=== PATIENT | female | born 1940 | race Caucasian/White ===

== ENCOUNTER 2023-04-09 11:03 | Inpatient (IN) | payer MEDICARE ==
[~2023-04-09] VITALS: Ht 165.1 cm; Wt 61.8 kg
[~2023-04-09 11:03] MED LIST: ALBU8.5H8 IH; ASPI-1197 PO; CLOP75TA32 PO; MONT-46 PO; RAMI10CA69 PO; ROSU10TA28 PO
[2023-04-09] MEDS ORDERED: ONDANSETRON 4MG INJ IVP ONE (12:00)
[2023-04-09] MEDS ORDERED: MORPHINE 4 MG SYG IVP ONE (12:00)
[2023-04-09] MEDS ORDERED: 0.9%NACL 1000ML 1,000 ML IV ONE (12:00)
[2023-04-09] MEDS ORDERED: ZOSYN 3.375GM +NS 50ML IVPB ONE (12:00)
[2023-04-09 12:41] LABS: BASOPHILS % (AUTO) 0.7 % (0.0-5.0); HEMATOCRIT 42.9 % (36-48); LYMPHOCYTES % (AUTO) 15.9 % (21.0-51.0); MEAN CORPUSCULAR HEMOGLOBIN 29.3 pg (27.0-33.0); MEAN CORPUSCULAR HGB CONC 33.6 g/dL (32.0-36.0); MEAN CORPUSCULAR VOLUME 87.2 fL (79-99); MONOCYTES % (AUTO) 9.1 % (3.0-13.0); NEUTROPHILS % (AUTO) 71.8 % (40.0-77.0); PLATELET COUNT (AUTO) 325 K/uL (130-400); RED BLOOD CELL COUNT(AUTO) 4.92 MIL/uL (4.00-5.50); RED CELL DISTRIBUTION WIDTH 13.2 % (11.0-15.5); WHITE BLOOD COUNT (AUTO) 8.6 K/uL (4.8-10.8)
[2023-04-09 13:02] LABS: POTASSIUM 4.2 mmol/L (3.5-5.1)
[2023-04-09 13:06] LABS: ALBUMIN 3.7 g/dL (3.5-5.0); TOTAL PROTEIN, SERUM 7.6 g/dL (6.0-8.3)
[2023-04-09] MEDS ORDERED: IOHEXOL-350 75 ML VIAL IV ONE (13:15)
[2023-04-09] MEDS ORDERED: METRONIDAZOLE 500 MG TABLET PO STA (15:03)
[2023-04-09] MEDS ORDERED: NEOMYCIN SULFATE 500 MG TAB PO STA (15:03)
[2023-04-09] MEDS ORDERED: PEG 3350/NA SULF,BICARB,CL/KCL 4000 ML SOLN PO ONE (16:00)
[2023-04-09] MEDS ORDERED: METRONIDAZOLE 500 MG TABLET PO SCH ×2 (16:30→22:00)
[2023-04-09] MEDS ORDERED: NEOMYCIN SULFATE 500 MG TAB PO SCH ×3 (16:30→23:00)
[2023-04-09] MEDS ORDERED: POTASSIUM CHLORIDE 20MEQ/100ML 100 ML IV PRN (17:30)
[2023-04-09] MEDS ORDERED: MAG/ALUM/SIMETH 30 ML UDCUP PO PRN (17:30)
[2023-04-09] MEDS ORDERED: DIPHENHYDRAMINE HCL 25 MG CAPSULE PO PRN (17:30)
[2023-04-09] MEDS ORDERED: HYDROCODONE/ACETAMINOPHEN 5/325 MG TAB PO PRN (17:30)
[2023-04-09] MEDS ORDERED: MAGNESIUM 2GM PREMIX 50ML 50 ML IV PRN (17:30)
[2023-04-09] MEDS ORDERED: GUAIFENESIN-DM 200/20 MG 10 ML PO PRN (17:30)
[2023-04-09] MEDS ORDERED: DiphenhydrAMINE HCL 50 MG/ML VIAL IV PRN (17:30)
[2023-04-09] MEDS ORDERED: POTASSIUM CHLORIDE 10% ELIXIR 20 MEQ/15 ML UDCUP PO PRN (17:30)
[2023-04-09] MEDS ORDERED: LACTULOSE 20 GM/30 ML UDCUP PO PRN (17:30)
[2023-04-09] MEDS ORDERED: NITROGLYCERIN 0.4 MG SL TAB SL PRN (17:30)
[2023-04-09] MEDS ORDERED: ACETAMINOPHEN 325 MG TAB PO PRN (17:30)
[2023-04-09] MEDS: ALBUTEROL INHALER 90MCG/INH IH SCH (18:06)
[2023-04-09] MEDS: CLOPIDOGREL 75MG TAB PO SCH (18:07)
[2023-04-09] MEDS: ASPIRIN 81MG CHEW TAB PO SCH (18:07)
[2023-04-09] MEDS: METRONIDAZOLE 500 MG TABLET PO SCH ×2 (20:16→22:56)
[2023-04-09] MEDS: 0.9%NACL 1000ML 1,000 ML IV SCH (20:17)
[2023-04-09] MEDS: FAMOTIDINE 20MG VIAL IV SCH (20:17)
[2023-04-09] MEDS: FAMOTIDINE 20MG TAB PO SCH (20:18)
[2023-04-09] MEDS: ATORVASTATIN 20 MG TABLET PO SCH (20:33)
[2023-04-09] MEDS: MONTELUKAST SODIUM 10 MG TAB PO SCH (20:33)
[2023-04-09] MEDS: NEOMYCIN SULFATE 500 MG TAB PO SCH (22:51)
[2023-04-09 23:30] VITALS: BP 106/65
[2023-04-10] VITALS (23 sets, daily range): BP systolic 109–162; BP diastolic 50–73
[2023-04-10] MEDS: ACETAMINOPHEN 325 MG TAB PO PRN ×2 (02:33→14:10)
[2023-04-10] MEDS: 0.9%NACL 1000ML 1,000 ML IV SCH ×3 (03:16→20:55)
[2023-04-10 05:10] LABS: BASOPHILS % (AUTO) 0.5 % (0.0-5.0); EOSINOPHILS % (AUTO) 0.2 % (0.0-8.0); HEMATOCRIT 40.5 % (36-48); LYMPHOCYTES % (AUTO) 11.6 % (21.0-51.0); MEAN CORPUSCULAR HEMOGLOBIN 29.1 pg (27.0-33.0); MEAN CORPUSCULAR HGB CONC 32.6 g/dL (32.0-36.0); MEAN CORPUSCULAR VOLUME 89.2 fL (79-99); MONOCYTES % (AUTO) 7.6 % (3.0-13.0); NEUTROPHILS % (AUTO) 79.7 % (40.0-77.0); PLATELET COUNT (AUTO) 295 K/uL (130-400); RED BLOOD CELL COUNT(AUTO) 4.54 MIL/uL (4.00-5.50); RED CELL DISTRIBUTION WIDTH 13.4 % (11.0-15.5); WHITE BLOOD COUNT (AUTO) 9.4 K/uL (4.8-10.8)
[2023-04-10 05:40] LABS: ALBUMIN 3.3 g/dL (3.5-5.0); CREATININE 1.1 mg/dL (0.5-1.5); MAGNESIUM 1.9 mg/dL (1.80-2.40); PHOSPHORUS 3.2 mg/dL (2.5-4.9); POTASSIUM 3.9 mmol/L (3.5-5.1); THYROID STIMULATING HORMONE 1.16 uIU/mL (0.36-3.74); TOTAL PROTEIN, SERUM 6.6 g/dL (6.0-8.3)
[2023-04-10] MEDS: LISINOPRIL 40 MG TABLET PO SCH (08:00)
[2023-04-10] MEDS: ASPIRIN 81MG CHEW TAB PO SCH (08:18)
[2023-04-10] MEDS: CLOPIDOGREL 75MG TAB PO SCH (08:18)
[2023-04-10] MEDS: ALBUTEROL INHALER 90MCG/INH IH SCH (08:18)
[2023-04-10] MEDS: FAMOTIDINE 20MG TAB PO SCH ×2 (08:18→18:37)
[2023-04-10] MEDS: FAMOTIDINE 20MG VIAL IV SCH ×2 (08:19→22:26)
[2023-04-10] MEDS: ENOXAPARIN SODIUM 30 MG/0.3 ML SQ SCH (08:19)
[2023-04-10] MEDS ORDERED: SUCCINYLCHOLINE CHLORIDE 20 MG/ML 10 ML VIAL ONE (15:52)
[2023-04-10] MEDS ORDERED: FENTANYL CITRATE PF 50 MCG/1 ML 2ML VIAL ONE ×4 (15:52→21:41)
[2023-04-10] MEDS ORDERED: ALBUTEROL INHALER 90MCG/INH IH ONE (15:52)
[2023-04-10] MEDS ORDERED: ETOMIDATE 20MG VIAL ONE (15:52)
[2023-04-10] MEDS ORDERED: LIDOCAINE PF 100MG/5ML (2%) SYRINGE 5ML ONE (15:52)
[2023-04-10] MEDS ORDERED: ROCURONIUM 10MG/1ML SYR 10 MG/ML ML ONE (15:52)
[2023-04-10] MEDS ORDERED: DEXAMETHASONE SOD PHOSPHATE 10MG/ML 1ML VIAL ONE (15:53)
[2023-04-10] MEDS ORDERED: NOREPINEPHRINE BITARTRATE 1 MG/1 ML ML IV ONE (15:53)
[2023-04-10] MEDS ORDERED: CEFAZOLIN SODIUM 1 GM VIAL ONE (16:06)
[2023-04-10] MEDS ORDERED: METRONIDAZOLE 500MG/100ML BAG 100 ML ONE (16:06)
[2023-04-10] MEDS ORDERED: BUPIVACAINE/PF 0.25% 30ML VIAL IJ ONE (16:10)
[2023-04-10] MEDS ORDERED: CEFAZOLIN SODIUM 2 GM VIAL IVPB ONE (17:00)
[2023-04-10] MEDS ORDERED: BUPIVACAINE/PF 0.5% 50ML 5 MG/ML VIAL ONE (17:07)
[2023-04-10] MEDS ORDERED: EPHEDRINE SULFATE 50 MG/ML AMPULE ONE (17:07)
[2023-04-10] MEDS: NEOMYCIN SULFATE 500 MG TAB PO SCH (18:37)
[2023-04-10] MEDS ORDERED: GLYCOPYRROLATE 1 MG/5 ML SYRINGE ONE (20:04)
[2023-04-10] MEDS ORDERED: NEOSTIGMINE 5MG/5ML SYR IV ONE (20:05)
[2023-04-10] MEDS ORDERED: ONDANSETRON 4MG INJ ONE (20:05)
[2023-04-10] MEDS ORDERED: MEPERIDINE-PF 25 MG/ML SYG ONE ×2 (21:04→21:29)
[2023-04-10] MEDS: HYDROMORPHONE 1 MG INJ IV PRN (22:26)
[2023-04-10] MEDS: MONTELUKAST SODIUM 10 MG TAB PO SCH (22:26)
[2023-04-10] MEDS: ATORVASTATIN 20 MG TABLET PO SCH (22:26)
[2023-04-10] MEDS: METRONIDAZOLE 500 MG TABLET PO SCH ×2 (22:26)
[2023-04-11] VITALS (13 sets, daily range): BP systolic 105–137; BP diastolic 43–85
[2023-04-11] MEDS: HYDROCODONE/ACETAMINOPHEN 5/325 MG TAB PO PRN ×3 (02:19→20:25)
[2023-04-11 04:57] LABS: BASOPHILS % (AUTO) 0.2 % (0.0-5.0); HEMATOCRIT 39.5 % (36-48); LYMPHOCYTES % (AUTO) 4.1 % (21.0-51.0); MEAN CORPUSCULAR HEMOGLOBIN 29.4 pg (27.0-33.0); MEAN CORPUSCULAR HGB CONC 32.4 g/dL (32.0-36.0); MEAN CORPUSCULAR VOLUME 90.6 fL (79-99); MONOCYTES % (AUTO) 5.7 % (3.0-13.0); NEUTROPHILS % (AUTO) 89.6 % (40.0-77.0); PLATELET COUNT (AUTO) 233 K/uL (130-400); RED BLOOD CELL COUNT(AUTO) 4.36 MIL/uL (4.00-5.50); RED CELL DISTRIBUTION WIDTH 13.2 % (11.0-15.5); WHITE BLOOD COUNT (AUTO) 12.7 K/uL (4.8-10.8)
[2023-04-11 05:13] LABS: ALBUMIN 3.2 g/dL (3.5-5.0); MAGNESIUM 1.6 mg/dL (1.80-2.40); POTASSIUM 3.5 mmol/L (3.5-5.1); TOTAL PROTEIN, SERUM 6.5 g/dL (6.0-8.3)
[2023-04-11] MEDS: KCL 20 MEQ ERTAB PO PRN ×2 (05:36→13:25)
[2023-04-11] MEDS: HYDROMORPHONE 1 MG INJ IV PRN ×2 (05:37→16:55)
[2023-04-11] MEDS: 0.9%NACL 1000ML 1,000 ML IV SCH ×2 (05:54→15:00)
[2023-04-11] MEDS: ASPIRIN 81MG CHEW TAB PO SCH (08:55)
[2023-04-11] MEDS: LISINOPRIL 40 MG TABLET PO SCH (08:55)
[2023-04-11] MEDS: FAMOTIDINE 20MG VIAL IV SCH ×2 (08:55→21:00)
[2023-04-11] MEDS: FAMOTIDINE 20MG TAB PO SCH ×2 (08:56→20:24)
[2023-04-11] MEDS: ENOXAPARIN SODIUM 30 MG/0.3 ML SQ SCH (08:56)
[2023-04-11] MEDS: CEFTRIAXONE 1G VIAL IVPB SCH (13:24)
[2023-04-11 17:01] LABS: APPEARANCE,URINE CLEAR (CLEAR); BILIRUBIN,URINE NEGATIVE (NEGATIVE); COLOR,URINE COLORLESS (YELLOW); GLUCOSE, URINE (UA) NEGATIVE (NEGATIVE); KETONES,URINE NEGATIVE (NEGATIVE); LEUKOCYTE ESTERASE ,URINE NEGATIVE Leu/uL (NEGATIVE); NITRATE,URINE NEGATIVE (NEGATIVE); OCCULT BLOOD,URINE MODERATE (NEGATIVE); PH,URINE 5.5 (5.0-8.0); PROTEIN,URINE NEGATIVE (NEGATIVE); UROBILINOGEN,URINE 0.2 mg/dL (0.2-1.0)
[2023-04-11 17:27] LABS: BACTERIA,URINE RARE /HPF (None Seen); YEAST,URINE BUDDING FEW /HPF (None Seen)
[2023-04-11] MEDS: MONTELUKAST SODIUM 10 MG TAB PO SCH (20:24)
[2023-04-11] MEDS: ATORVASTATIN 20 MG TABLET PO SCH (20:25)
[2023-04-12] VITALS (7 sets, daily range): BP systolic 119–154; BP diastolic 45–78
[2023-04-12] MEDS: 0.9%NACL 1000ML 1,000 ML IV SCH ×2 (00:47→12:13)
[2023-04-12] MEDS: HYDROCODONE/ACETAMINOPHEN 5/325 MG TAB PO PRN ×2 (04:14→08:27)
[2023-04-12 05:06] LABS: BASOPHILS % (AUTO) 0.4 % (0.0-5.0); EOSINOPHILS % (AUTO) 0.4 % (0.0-8.0); HEMATOCRIT 36.9 % (36-48); LYMPHOCYTES % (AUTO) 13.5 % (21.0-51.0); MEAN CORPUSCULAR HGB CONC 31.7 g/dL (32.0-36.0); MEAN CORPUSCULAR VOLUME 91.3 fL (79-99); MONOCYTES % (AUTO) 8.9 % (3.0-13.0); NEUTROPHILS % (AUTO) 76.2 % (40.0-77.0); PLATELET COUNT (AUTO) 222 K/uL (130-400); RED BLOOD CELL COUNT(AUTO) 4.04 MIL/uL (4.00-5.50); RED CELL DISTRIBUTION WIDTH 13.7 % (11.0-15.5); WHITE BLOOD COUNT (AUTO) 9.3 K/uL (4.8-10.8)
[2023-04-12 05:20] LABS: ALBUMIN 2.7 g/dL (3.5-5.0); POTASSIUM 3.9 mmol/L (3.5-5.1)
[2023-04-12] MEDS ORDERED: FAMOTIDINE 20MG VIAL IV PRN (08:00)
[2023-04-12] MEDS: ONDANSETRON 4MG INJ IV PRN (08:25)
[2023-04-12] MEDS: ASPIRIN 81MG CHEW TAB PO SCH (08:26)
[2023-04-12] MEDS: LISINOPRIL 40 MG TABLET PO SCH (08:26)
[2023-04-12] MEDS: FAMOTIDINE 20MG TAB PO SCH ×2 (08:26→20:40)
[2023-04-12] MEDS: ENOXAPARIN SODIUM 30 MG/0.3 ML SQ SCH (08:27)
[2023-04-12] MEDS: ALBUTEROL INHALER 90MCG/INH IH SCH (10:22)
[2023-04-12] MEDS: CEFTRIAXONE 1G VIAL IVPB SCH (12:17)
[2023-04-12] MEDS ORDERED: SIMETHICONE 80 MG TAB.CHEW PO PRN (15:30)
[2023-04-12] MEDS: SCOPOLAMINE HYDROBROMIDE 1 EACH ADH..PATCH TD SCH (16:43)
[2023-04-12] MEDS: ATORVASTATIN 20 MG TABLET PO SCH (20:40)
[2023-04-12] MEDS: MONTELUKAST SODIUM 10 MG TAB PO SCH (20:40)
[2023-04-13] MEDS: HYDROCODONE/ACETAMINOPHEN 5/325 MG TAB PO PRN ×2 (00:59→19:45)
[2023-04-13 03:34] VITALS: BP 127/83
[2023-04-13 08:00] VITALS: BP 144/58
[2023-04-13] MEDS: LISINOPRIL 40 MG TABLET PO SCH (08:59)
[2023-04-13] MEDS: ASPIRIN 81MG CHEW TAB PO SCH (08:59)
[2023-04-13] MEDS: ENOXAPARIN SODIUM 30 MG/0.3 ML SQ SCH (09:00)
[2023-04-13] MEDS: FAMOTIDINE 20MG TAB PO SCH ×2 (09:00→19:44)
[2023-04-13] MEDS: ALBUTEROL INHALER 90MCG/INH IH SCH (09:01)
[2023-04-13 11:32] VITALS: BP 131/51
[2023-04-13] MEDS: CEFTRIAXONE 1G VIAL IVPB SCH (14:28)
[2023-04-13] MEDS: SCOPOLAMINE HYDROBROMIDE 1 EACH ADH..PATCH TD SCH (15:30)
[2023-04-13 15:54] VITALS: BP 152/56
[2023-04-13] MEDS: ATORVASTATIN 20 MG TABLET PO SCH (19:44)
[2023-04-13] MEDS: ONDANSETRON 4MG INJ IV PRN (19:44)
[2023-04-13] MEDS: MONTELUKAST SODIUM 10 MG TAB PO SCH (19:44)
[2023-04-13 20:00] VITALS: BP 145/74
[2023-04-14] VITALS: BP 137/79
[2023-04-14 04:00] VITALS: BP 144/68
[2023-04-14 08:00] VITALS: BP 147/71
[2023-04-14] MEDS: ASPIRIN 81MG CHEW TAB PO SCH (09:03)
[2023-04-14] MEDS: ALBUTEROL INHALER 90MCG/INH IH SCH (09:03)
[2023-04-14] MEDS: FAMOTIDINE 20MG TAB PO SCH ×2 (09:03→21:15)
[2023-04-14] MEDS: ENOXAPARIN SODIUM 30 MG/0.3 ML SQ SCH (09:04)
[2023-04-14] MEDS: LISINOPRIL 40 MG TABLET PO SCH (09:04)
[2023-04-14] MEDS: HYDROCODONE/ACETAMINOPHEN 5/325 MG TAB PO PRN (09:09)
[2023-04-14 09:52] LABS: HEMATOCRIT 35.3 % (36-48); MEAN CORPUSCULAR HEMOGLOBIN 29.1 pg (27.0-33.0); MEAN CORPUSCULAR HGB CONC 31.4 g/dL (32.0-36.0); MEAN CORPUSCULAR VOLUME 92.4 fL (79-99); RED BLOOD CELL COUNT(AUTO) 3.82 MIL/uL (4.00-5.50); RED CELL DISTRIBUTION WIDTH 13.5 % (11.0-15.5); WHITE BLOOD COUNT (AUTO) 8.7 K/uL (4.8-10.8)
[2023-04-14 09:55] LABS: ALBUMIN 2.4 g/dL (3.5-5.0); CREATININE 0.8 mg/dL (0.5-1.5); TOTAL PROTEIN, SERUM 6.1 g/dL (6.0-8.3)
[2023-04-14 12:00] VITALS: BP 117/47
[2023-04-14] MEDS: CEFTRIAXONE 1G VIAL IVPB SCH (13:43)
[2023-04-14] MEDS: SCOPOLAMINE HYDROBROMIDE 1 EACH ADH..PATCH TD SCH (15:30)
[2023-04-14 17:24] VITALS: BP 128/46
[2023-04-14 20:00] VITALS: BP 145/69
[2023-04-14] MEDS ORDERED: HYDROMORPHONE 0.5 MG SYG (0.5MG/0.5ML) IVP PRN (21:00)
[2023-04-14] MEDS ORDERED: HYDROCODONE/ACETAMINOPHEN 5/325 MG TAB PO PRN ×2 (21:00)
[2023-04-14] MEDS: MONTELUKAST SODIUM 10 MG TAB PO SCH (21:15)
[2023-04-14] MEDS: ATORVASTATIN 20 MG TABLET PO SCH (21:15)
[2023-04-15] VITALS: BP 125/54
[2023-04-15 04:00] VITALS: BP 141/62
[2023-04-15 08:00] VITALS: BP 147/53
[2023-04-15] MEDS: ALBUTEROL INHALER 90MCG/INH IH SCH (09:00)
[2023-04-15] MEDS: ENOXAPARIN SODIUM 30 MG/0.3 ML SQ SCH (09:00)
[2023-04-15] MEDS: LISINOPRIL 40 MG TABLET PO SCH (09:52)
[2023-04-15] MEDS: ASPIRIN 81MG CHEW TAB PO SCH (09:52)
[2023-04-15] MEDS: FAMOTIDINE 20MG TAB PO SCH (09:53)
[2023-04-15 12:00] VITALS: BP 143/76
== END 2023-04-15 12:15 | disposition home or self-care (01) | DRG 333 ==
LOC: EDH 11:03 → EDHIP 17:13 → 4BH 23:23
PROVIDERS: ADMIT Internal Medicine; ATTEND Internal Medicine
PROC: 0DBP4ZZ Excision of Rectum, Percutaneous Endoscopic Approach (ICD-10-PCS; 2023-04-10)
PROC: 0TQB4ZZ Repair Bladder, Percutaneous Endoscopic Approach (ICD-10-PCS; 2023-04-10)
PROC: 8E0W4CZ Robotic Assisted Procedure of Trunk Region, Percutaneous Endoscopic Approach (ICD-10-PCS; principal; 2023-04-10 16:20)
DX: K57.32 Diverticulitis of large intestine without perforation or abscess without bleeding (principal); K56.7 Ileus, unspecified; N32.1 Vesicointestinal fistula; Z20.822 Contact with and (suspected) exposure to COVID-19; I25.10 Atherosclerotic heart disease of native coronary artery without angina pectoris; K66.0 Peritoneal adhesions (postprocedural) (postinfection); E78.5 Hyperlipidemia, unspecified; I10 Essential (primary) hypertension; I25.5 Ischemic cardiomyopathy; Z79.02 Long term (current) use of antithrombotics/antiplatelets; Z79.82 Long term (current) use of aspirin; Z87.440 Personal history of urinary (tract) infections; Z87.891 Personal history of nicotine dependence; Z88.2 Allergy status to sulfonamides
CPT/HCPCS: 36415; 45378; 71045; 74177; 80053; 81001; 83540; 83550; 83605; 83690; 83735; 84100; 84443; 85025; 85027; 87040; 87635; 93005; 97039; A4344; G0378; J0330; J0690; J0696; J1100; J1170; J1650; J2001; J2175; J2270; J2405; J2543; J2710; J3010; J3475; J3490; J7030; J7040; J7120; Q9967

== ENCOUNTER 2025-02-06 07:25 | Inpatient (IN) | payer MEDICARE, OTHER ==
[2025-02-06] VITALS (11 sets, daily range): BP systolic 110–152; BP diastolic 48–88; PULSE 55–85; RESP 18–20; TEMP 97–97.9; O2SAT 96–97
[~2025-02-06] VITALS: Ht 162.6 cm; Wt 67.1 kg
[~2025-02-06 07:25] MED LIST changes: +ALBU18HF7 IH; +EMPA10TA PO; +FLUC100T12 PO; +FLUT15.845 NS; +FLUT1AER IH; +LISI2.5T13 PO; +METO25TA3 PO; +PRED20TA3 PO; -RAMI10CA69 PO; -ROSU10TA28 PO; +ROSU10TA72 PO; +SPIR25TA6 PO
[2025-02-06] MEDS ORDERED: LACTATED RINGERS 1000ML 1,000 ML IV ONE (07:30)
--- NOTE | 2025-02-06 07:38 | NUR ---
UPON PT BEING PLACED ON THE ETL PROGRAMMER, PT SHOWS SB VS 3RD DEGREE AV BLOCK W/BBB. PT ALSO APPEARS VERY ANXIOUS IN HOW FAST AND HOW MUCH SHE IS SPEAKING
--- NOTE | 2025-02-06 07:40 | NUR ---
PT PLACED IN A HOSPITAL GOWN
--- NOTE | 2025-02-06 07:42 | NUR ---
PACER PADS APPLIED TO PT CHEST WALL/BACK
--- NOTE | 2025-02-06 07:46 | EKG ---
[facility] Test Date: 2025-02-06 Test Time: 07:34:36 Pat Name: JENN MURRAY Department: ED Room: 223 Gender: F Forger Helper: [phone] : [id number] Requested By: ROMAN DOBBS Order Number: [id number] Reading MD: Taye Du Measurements Intervals [place] Rate: 29 P: 46 DE: 297 QRS: -55 QRSD: 167 T: -62 QT: 685 QTc: 474 Interpretive Statements COMPLETE AV BLOCK WITH WIDE QRS COMPLEX Left bundle branch block Compared to ECG 08/30/2024 19:20:15 AV block, advanced (high-grade) now present Sinus rhythm no longer present Ventricular premature complex(es) no longer present Electronically Signed On 02-08-2025 13:03:11 CDT by Taye Du Please click the below link to view image of tracing.
--- NOTE | 2025-02-06 07:50 | ERN ---
General Chief Complaint: Shortness of Breath Stated Complaint: WEAKNESS AND SOB Time Seen by MD: 07:27 Source: patient History of Present Illness Initial Comments PATIENT IS A AN 84-YEAR-OLD FEMALE COMING IN TO BE EVALUATED FOR SHORTNESS OF BREATH AND RACING HEART. PER PATIENT SHE FEELS IF HER HEART WAS RACING BEGAN YESTERDAY AFTER SHE TOOK PREDNISONE FOR HER COPD. SHE STATES THAT SHORTLY AFTER TAKING MEDICATION FOR COPD SHE STARTED HAVING INCREASED SHORTNESS OF BREATH AND FELT IF HER HEART RATES WERE RACING. PER EMS PATIENT HAS BEEN BRADYCARDIC FLUCTUATING BETWEEN THE 20S IN THE 60S IN HEART RATE. Allergies: Coded Allergies: Sulfa (Sulfonamide Antibiotics) (Verified Allergy, Unknown, 12/26/19) Home Meds Active Scripts Metoprolol Succinate (Toprol Xl) 25 Mg Tab.er.24h, 25 MG PO DAILY, #30 TAB Prov:JUANA DOUGLAS MD 09/02/24 Fluconazole (Fluconazole) 100 Mg Tablet, 100 MG PO DAILY, #7 TAB Prov:JUANA DOUGLAS MD 09/02/24 Spironolactone (Spironolactone) 25 Mg Tablet, 25 MG PO DAILY, #30 TAB Prov:JUANA DOUGLAS MD 09/02/24 Lisinopril (Lisinopril) 2.5 Mg Tablet, 2.5 MG PO DAILY, #30 TAB Prov:JUANA DOUGLAS MD 09/02/24 Empagliflozin (Jardiance) 10 Mg Tablet, 10 MG PO DAILY, #30 TAB Prov:JUANA DOUGLAS MD 09/02/24 Reported Medications Fluticasone Propionate (Fluticasone Propionate) 50 Mcg/Actuation [place].susp, 2 SPRAY NS DAILY, #16 GM 0 Refills 08/30/24 Fluticasone/Vilanterol (Breo Ellipta 100-25 Mcg INH) 100 Mcg-25 Mcg/Dose Aer.pow.ba, 1 PUFF IH DAILY for 30 Days, #1 EACH 0 Refills 08/30/24 Albuterol Sulfate (Ventolin Hfa) 90 Mcg Hfa.aer.ad, 1 PUFF IH QID PRN for wheezing for 30 Days, #18 GM 0 Refills 08/30/24 Rosuvastatin Calcium (Rosuvastatin Calcium) 10 Mg Tablet, 10 MG PO DAILY, TAB 08/30/24 Prednisone (Prednisone) 20 Mg Tablet, 20 MG PO AD, TAB 08/30/24 Albuterol Sulfate (Proair Hfa) 8.5 Gm Hfa.aer.ad, 8.5 GM IH DAILY 12/27/19 Montelukast Sodium (Singulair 10Mg) 10 Mg Tab, 10 MG PO DAILY, TAB 12/27/19 Clopidogrel Bisulfate (Clopidogrel) 75 Mg Tablet, 75 MG PO DAILY, TAB 12/27/19 Aspirin (Aspirin) 81 Mg Tab.chew, 81 MG PO DAILY, TAB.CHEW 12/27/19 Past Medical History Past Medical History: CHF, COPD, Diverticulitis, Heart Disease, [place], Other Medical History Other: "BROKEN HEART SYNDROME" Past Surgical History: Other Surgical History Other: CATARACT SX, LT CAROTID SX, BOWEL RESECTION AND REANASTAMOSIS Social History Social History: Negative ROS Dictation CONSTITUTIONAL: NO CHILLS, NO FEVER, NO WEAKNESS, NO DIAPHORESIS, NO MALAISE. HEAD/FACE: NO SIGNS OF TRAUMA. EENT: NO EYE PAIN, NO BLURRED VISION, NO TEARING, NO DOUBLE VISION, NO EAR PAIN, NO EAR DISCHARGE, NO NOSE PAIN, NO NASAL CONGESTION, NO THROAT PAIN, NO THROAT SWELLING, NO MOUTH PAIN. RESPIRATORY: NO COUGH, ORTHOPNEA, SOB, NO STRIDOR, NO WHEEZING. CARDIOVASCULAR: NO CHEST PAIN, NO EDEMA, NO PALPITATIONS, NO SYNCOPE. GASTROINTESTINAL/ABDOMINAL: NO ABDOMINAL PAIN, NO CONSTIPATION, NO DIARRHEA, NO NAUSEA, NO VOMITING. GENITOURINARY: NO ABNORMAL DISCHARGE, NO DYSURIA, NO FREQUENT URINATION, NO HEMATURIA. NO COMPLAINTS OF PAIN IN THE GENITALS. MUSCULOSKELETAL: NO BACK PAIN, NO GOUT, NO JOINT PAIN, NO JOINT SWELLING, NO MUSCLE PAIN, NO MUSCLE STIFFNESS, NO NECK PAIN. INTEGUMENTARY: NO CHANGE IN COLOR, NO CHANGE IN HAIR/NAILS, NO DRYNESS, NO LESION, NO LUMPS, NO RASH. NEUROLOGICAL/PSYCH: NO ANXIETY, NOT DEPRESSED, NO EMOTIONAL PROBLEM, NO HEADACHE, NO NUMBNESS, NO PRE-EXISTING DEFICIT, NO HISTORY OF SEIZURES, NO TREMORS, NO WEAKNESS. HEMATOLOGIC/LYMPHATIC: NOT ANEMIC, NO HISTORY OF BLOOD CLOTS, NO APPARENT BLEEDING, NO BRUISING, GLANDS NOT SWOLLEN. ALL SYSTEMS NEGATIVE, EXCEPT NOTED. Physical Exam Physical Exam Dictation VITAL SIGNS: REVIEWED. GENERAL APPEARANCE: ALERT, ORIENTED X3, NO ACUTE DISTRESS, OBESE. HEAD AND FACE: NON-TRAUMATIC. EYES: PERRL, PINK CONJUNCTIVAS, EYELID NO TRAUMA, ANTERIOR CHAMBER CLEAR. EARS: PINNAS INTACT AND NO SIGNS OF TRAUMA OR ERYTHEMA. EAR CANALS CLEAR AND NO DISCHARGE. TMS NO ERYTHEMA. NOSE: NO DISCHARGE, NO BLEEDING. OROPHARYNX: MOUTH NORMAL, TEETH NO CARIES, TONGUE PINK. PHARYNX CLEAR, NO ERYTHEMA. TONSILS NO EXUDATES, NO ABSCESSES NOTED. MUCOUS MEMBRANE MOIST. NECK: SUPPLE, NON-TENDER, NO THYROMEGALY, NO MASSES, NO JVD, NO BRUITS. BREAST: DEFERRED. CHEST: NO TENDERNESS, NO CREPITUS, NO PARADOXICAL MOVEMENT, NO RETRACTIONS. LUNGS: CLEAR, WELL-VENTILATED, SYMMETRIC, NO RALES, NO WHEEZING, NO RHONCHI, NO STRIDOR, GOOD BREATH SOUNDS BILATERALLY. HEART: REGULAR RATE, REGULAR RHYTHM, NO MURMUR, NO GALLOPS. VASCULAR: NO PERIPHERAL EDEMA. ABDOMEN: SOFT, POSITIVE BOWEL SOUNDS, NONDISTENDED, NO GUARDING, NONTENDER, NO REBOUND, NO MASSES NO HEPATOMEGALY, NO SPLENOMEGALY, NO PHAN'S SIGN, NO HERNIAS. RECTAL: DEFERRED. GENITAL: DEFERRED. NEUROLOGICAL: NORMAL SPEECH, GROSS MOTOR FUNCTION INTACT, GROSS SENSORY FUNCTION INTACT. MUSCULOSKELETAL: NECK NONTENDER, FULL RANGE OF MOTION, BACK NONTENDER, FULL RANGE OF MOTION. EXTREMITIES: NONTENDER, FULL RANGE OF MOTION. SKIN: COLOR PINK, DRY, NO TURGOR, NO RASH, NO LACERATIONS, NO ABRASIONS, NO CONTUSIONS. LYMPHATICS: DEFERRED. Results Laboratory and Microbiology Lab and Micro Result Laboratory Tests Test 02/06/25 07:49 White Blood Count 11.5 K/uL (4.8-10.8) H Red Blood Count 5.20 MIL/uL (4.00-5.50) Hemoglobin 15.6 g/dL (12.0-16.0) Hematocrit 46.9 % (36-48) Mean Corpuscular Volume 90.2 fL (79-99) Mean Corpuscular Hemoglobin 30.0 pg (27.0-33.0) Mean Corpuscular Hemoglobin Concent 33.3 g/dL (32.0-36.0) Red Cell Distribution Width 13.1 % (11.0-15.5) Platelet Count 281 K/uL (130-400) Mean Platelet Volume 9.8 fL (7.5-10.5) Immature Granulocyte % (Auto) 0.3 % (0-1) Neutrophils (%) (Auto) 79.4 % (40.0-77.0) H Lymphocytes (%) (Auto) 13.7 % (21.0-51.0) L Monocytes (%) (Auto) 6.1 % (3.0-13.0) Eosinophils (%) (Auto) 0.2 % (0.0-8.0) Basophils (%) (Auto) 0.3 % (0.0-5.0) Neutrophils # (Auto) 9.1 K/uL (1.8-7.7) H Lymphocytes # (Auto) 1.6 K/uL (1.0-4.8) Monocytes # (Auto) 0.7 K/uL (0.1-1.0) Eosinophils # (Auto) 0.02 K/uL (0.00-0.70) Basophils # (Auto) 0.03 K/uL (0.00-0.20) Absolute Immature Granulocyte (auto 0.04 K/uL (0-1) Nucleated Red Blood Cells 0.0 % (0.0-0.19) Prothrombin Time 11.2 SEC (9.6-11.6) Prothromb Time International Ratio 1.06 (0.85-1.15) Activated Partial Thromboplast Time 24.3 SEC (26.3-35.5) L Sodium Level 142 mmol/L (136-145) Potassium Level 4.9 mmol/L (3.5-5.1) Chloride Level 106 mmol/L (101-111) Carbon Dioxide Level 23 mmol/L (21-32) Blood Urea Nitrogen 25 mg/dL (7-18) H Creatinine 1.1 mg/dL (0.5-1.0) H Glomerular Filtration Rate Calc 50 mL/min (>90) Random Glucose 177 mg/dL (70-105) H Total Calcium 9.7 mg/dL (8.5-10.1) Magnesium Level 2.10 mg/dL (1.80-2.40) Total Creatine Kinase 94 U/L (21-232) Troponin I High Sensitivity 6 ng/L (4-50) B-Type Natriuretic Peptide 765 pg/mL (0-100) H Labs Reviewed?: Yes EKG/XRAY/US/CT/MRI EKG Comment 02/06/2025 TIME 7:34 A.M. VENTRICULAR RATE [address] 297 LEFT BUNDLE-BRANCH BLOCK NO ST WAVE ELEVATION OR DEPRESSION MDM MDM: DIFFERENTIAL DIAGNOSIS: THIRD-DEGREE HEART BLOCK, HISTORY OF TAKOTSUBO, LEFT BUNDLE BRANCH BLOCK, SHORTNESS OF BREATH RATIONALE: TESTS CONSIDERED AND ORDERED SECONDARY TO SHARED DECISION MAKING INCLUDE: LABS, ECG AND RADIOLOGY PREVIOUS OUTSIDE RECORDS REVIEWED: OLD ER VISITS. RISK OF COMPLICATION AND/OR MORBIDITY OR MORTALITY OF PATIENT MANAGEMENT: NONE MEDICATIONS-PER MEDICATION RECONCILIATION NEED FOR HOSPITALIZATION: PATIENT DOES MEET CRITERIA FOR HOSPITALIZATION. NEED FOR EMERGENCY MAJOR/MINOR SURGERY: NO THERE ARE NO SOCIAL CONCERNS WITH THIS PATIENT. PRESCRIPTION DRUG MANAGEMENT PRESCRIPTIONS WILL INCLUDE SYMPTOMATIC CARE PATIENT'S PRIOR EXTERNAL MEDICAL RECORDS FROM OTHER ER VISITS WERE REVIEWED BY ME INDICATED. PRIOR TESTING AND RESULTS FROM PREVIOUS VISITS WERE REVIEWED. PRIOR TESTS WERE TAKEN INTO ACCOUNT WITH MEDICAL DECISION MAKING AND RESOURCE UTILIZATION, INDEPENDENT HISTORIAN/HISTORIANS WERE USED TO OBTAIN COMPLETE MEDICAL HISTORY. I INDEPENDENTLY INTERPRETED THE TEST THAT WERE PERFORMED, RESULTS WERE REVIEWED BY ME AND CONSIDERED FINDINGS ON RADIOLOGY IF ORDERED. MEDICAL MANAGEMENT AND EXAMINATION INTERPRETATION DISCUSSIONS WERE HAD BY ME WITH OTHER QUALIFIED HEALTHCARE PROFESSIONALS INDICATED FOR THE PATIENT'S CARE. HE WILL BE ADMITTED UNDER THE CARE OF HOSPITALIST GROUP FOR ONGOING MANAGEMENT. DR. BUNCH WAS CONSULTED PER HIS REQUEST DR. TIAN POSSIBLY PUT A TEMPORARY PACEMAKER ED Course Orders Procedure Category Date Status Time Cbc With Differential LAB 02/06/25 Complete 07:27 Prothrombin Time With LAB 02/06/25 Complete INR 07:27 B-Type Natriuretic LAB 02/06/25 Complete Peptide 07:27 Chest 1vw RAD 02/06/25 Taken 07:27 12 Lead Ekg Tracing- EKG 02/06/25 Complete Technical 07:27 Lactated Ringers PHA 02/06/25 Complete 1000ml (Lactated 07:30 Magnesium LAB 02/06/25 Complete 07:27 Creatine Kinase, Total LAB 02/06/25 Complete 07:27 Troponin I High LAB 02/06/25 Complete Sensitivity 07:27 Urinalysis Profile LAB 02/06/25 Logged 07:27 Partial LAB 02/06/25 Complete Thromboplastin Time 07:27 Basic Metabolic Panel LAB 02/06/25 Complete 07:27 Pantoprazole 40mg Inj PHA 02/06/25 Complete (Protonix 40mg Inj 07:30 Nothing By Mouth DIET 02/06/25 Transmitted Breakfast Thyroid Stimulating LAB 02/06/25 Logged Hormone 08:33 Npo Except For Meds CPOE 02/06/25 Transmitted 08:33 Furosemide 20mg Vial PHA 02/06/25 In Process (Lasix 20mg Vial) 09:00 Current Medications Medications (Trade) Dose Ordered Sig/Crystal Route PRN Reason Start Time Stop Time Status Last Admin Dose Admin Furosemide (LASix 20MG VIAL) 20 mg ONCE ONCE IV 02/06/25 09:00 02/06/25 09:01 Lactated Ringer's 1,000 ml @ 0 mls/hr ONCE ONCE IV 02/06/25 07:30 02/06/25 07:49 DC Pantoprazole Sodium (PROTonix 40MG INJ) 40 mg ONCE ONCE IVP 02/06/25 07:30 02/06/25 07:31 DC Vital Signs Date Time Temp Pulse Resp B/P (MAP) Pulse Ox O2 Delivery O2 Flow Rate FiO2 02/06/25 08:00 57 22 134/56 97 Nasal Cannula* 2 28 02/06/25 07:28 98.2 79 21 193/52 94 Room Air 0 Critical Care Note Comments CRITICAL CARE PROCEDURE NOTE AUTHORIZED AND PERFORMED BY: ME TOTAL CRITICAL CARE TIME: APPROXIMATELY 36 MINUTES DUE TO A HIGH PROBABILITY OF CLINICALLY SIGNIFICANT, LIFE THREATENING DETERIORATION, THE PATIENT REQUIRED MY HIGHEST LEVEL OF PREPAREDNESS TO INTERVENE EMERGENTLY AND I PERSONALLY SPENT THIS CRITICAL CARE TIME DIRECTLY AND PERSONALLY MANAGING THE PATIENT. THIS CRITICAL CARE TIME INCLUDED OBTAINING A HISTORY; EXAMINING THE PATIENT; PULSE OXIMETRY; ORDERING AND REVIEW OF STUDIES; ARRANGING URGENT TREATMENT WITH DEVELOPMENT OF A MANAGEMENT PLAN; EVALUATION OF PATIENT'S RESPONSE TO TREATMENT; FREQUENT REASSESSMENT; AND, DISCUSSIONS WITH OTHER PROVIDERS. THIS CRITICAL CARE TIME WAS PERFORMED TO ASSESS AND MANAGE THE HIGH PROBABILITY OF IMMINENT, LIFE-THREATENING DETERIORATION THAT COULD RESULT IN MULTI-ORGAN FAILURE. IT WAS EXCLUSIVE OF SEPARATELY BILLABLE PROCEDURES AND TREATING OTHER PATIENTS AND TEACHING TIME. PLEASE SEE MDM SECTION AND THE REST OF THE NOTE FOR FURTHER INFORMATION ON PATIENT ASSESSMENT AND TREATMENT. DX & DISP Disposition: Inpatient Decision to Admit Time: 08:55 Departure Impression: Primary Impression: Third degree heart block Additional Impression: History of non-ST elevation myocardial infarction (NSTEMI) Condition: Stable Referrals: GABE ALFONSO MD (PCP) ROMAN DOBBS MD February 06, 2025 07:50
--- NOTE | 2025-02-06 08:00 | NUR ---
CARDIOLOGY CONSULT: DR BUNCH JUST ARRIVED AT BEDSIDE W/RESIDENT
[2025-02-06 08:03] LABS: BASOPHILS # (AUTO) 0.03 K/uL (0.00-0.20); BASOPHILS % (AUTO) 0.3 % (0.0-5.0); EOSINOPHILS # (AUTO) 0.02 K/uL (0.00-0.70); EOSINOPHILS % (AUTO) 0.2 % (0.0-8.0); HEMATOCRIT 46.9 % (36-48); IMMATURE GRANULOCYTE ABSOLUTE 0.04 K/uL (0-1); LYMPHOCYTES # (AUTO) 1.6 K/uL (1.0-4.8); LYMPHOCYTES % (AUTO) 13.7 % (21.0-51.0); MEAN CORPUSCULAR HGB CONC 33.3 g/dL (32.0-36.0); MEAN CORPUSCULAR VOLUME 90.2 fL (79-99); MONOCYTES # (AUTO) 0.7 K/uL (0.1-1.0); MONOCYTES % (AUTO) 6.1 % (3.0-13.0); NEUTROPHILS # (AUTO) 9.1 K/uL (1.8-7.7); NEUTROPHILS % (AUTO) 79.4 % (40.0-77.0); PLATELET COUNT (AUTO) 281 K/uL (130-400); RED CELL DISTRIBUTION WIDTH 13.1 % (11.0-15.5); WHITE BLOOD COUNT (AUTO) 11.5 K/uL (4.8-10.8)
--- NOTE | 2025-02-06 08:14 | NUR ---
MD BUNCH CARDIOLOGY NOTIFIED NOTIFIED THIS NURSE OF THE FOLLOWING KEEP PT NPO NO METOPROLOL POSSIBLE PACEMAKER PLACEMENT THIS AFTERNOON, MD TIAN TO SEE PT AT BEDSIDE
[2025-02-06 08:19] LABS: CREATININE 1.1 mg/dL (0.5-1.0); MAGNESIUM 2.1 mg/dL (1.80-2.40); POTASSIUM 4.9 mmol/L (3.5-5.1)
[2025-02-06 08:24] LABS: INR 1.06 (0.85-1.15); PROTHROMBIN TIME 11.2 SEC (9.6-11.6)
[2025-02-06 08:26] LABS: PARTIAL THROMBOPLASTIN TIME 24.3 SEC (26.3-35.5)
--- NOTE | 2025-02-06 08:32 | PN ---
[facility] Cardiology Progress Note CARDIOLOGY CONSULTATION January Chief complaint: This is 84-year-old female presents with generalized weakness and near syncope and is found to be in complete heart block. History of present illness: Patient had a non ST-elevation UT about five years ago and catheterization revealed normal coronary arteries. She presented back in August with another non ST-elevation UT and she was again found to have normal coronary arteries. The appearance on her ventriculogram was consistent with takotsubo syndrome. Ejection fraction at that time was 48%. She has been treated medically and is on metoprolol. About a month ago in November she was having a green party had to put some food down because she believes she was going to pass out. She sat down and witnesses state that she was out for about 30 seconds. She did not seek any medical attention at that time. Yesterday she developed some lower abdominal discomfort and we again felt waves of near- syncope. She came to the emergency room this morning was found to be in complete heart block. She has a ventricular escape rhythm in the 40s. Blood pressure 130 systolic. Past medical history: She has a history of carotid artery disease status post left carotid endarterectomy with Dr. marquez she has chronic venous insufficiency hypertension dyslipidemia left bundle branch block and COPD. Social history: She is a former smoker who quit in 2010 after a 60 pack year history and had is an occasional drinker. Surgical history: Left carotid endarterectomy 2010 bilateral cataract surgery 2012 colon resection for diverticulitis with end-to-end anastomosis March 2023 Medications: Breo Ellipta inhaler once a day aspirin 81 mg daily pro air inha ler every 4 hours p.r.n. resume rosuvastatin 10 mg daily metoprolol succinate 25 mg 1/2 tablet b.i.d. Physical exam: Blood pressure was 130 systolic. Heart rate in the 40s. There was no elevation of the jugular venous pressure no bruits. Left carotid endarterectomy scars noted. S1 normal S2 physiologically split. No rub murmur gallop appreciable. Abdomen is soft extremities show no edema she is alert and oriented. Electrocardiogram: Sinus rhythm with left bundle branch block and complete heart block Laboratory studies: White count 11.5 hemoglobin 15.6 platelet count [id number]. Basic metabolic panel is pending. Chest x-ray: This is a portable film. Heart size appears normal. Pulmonary vascular pattern appears normal there were no effusions or infiltrates. Assessment: 1. Symptomatic complete heart block 2. Takotsubo syndrome diagnosed August 1024 with normal coronary arteries and LV ejection fraction of 40% at that time when 3. Dyslipidemia 4. COPD 5. Former smoker 6. Carotid artery disease status post left carotid endarterectomy 2010 Plan: This point we will obtain an urgent echo to assess LV function. The patient will be seen by Dr. Sal in consultation for possible permanent pacemaker implant. TSH level will be ordered. We will hold her metoprolol. We will check her potassium results when available. DEJUAN BUNCH MD February 06, 2025 08:32
[2025-02-06 08:36] LABS: B-TYPE NATRIURETIC PEPTIDE 765 pg/mL (0-100)
--- NOTE | 2025-02-06 08:42 | NUR ---
PT MOVED FROM ED 7 TO ED 10. BENJA WATSON TO ASSUME PT CARE.
--- NOTE | 2025-02-06 08:53 | NUR ---
HOSPITALIST PRODUCTION CONTROL SUPERVISOR JUST CALLED AND IS SPEAKING W/DR DOBBS
[2025-02-06] MEDS: PANTOPrazole 40 MG/VIAL IVP ONE (09:01)
[2025-02-06] MEDS: furoSEMIDE 20MG VIAL IV ONE (09:01)
--- NOTE | 2025-02-06 09:09 | HP ---
[facility] HISTORY AND PHYSICAL Date of Service: February 06, 2025 Time of Service: 08:57 HISTORY OF PRESENT ILLNESS: [ ] Admission date: PCP: Tami Marques MD This is 84-year-old female presents with generalized weakness, dyspnea with Minimal exertion. Onset 2 days. severity: severe fatigue, aggravating factors: activity, alleviating factors none: Reports having of episodes of near fainti ng. Assoicated factors: GI symptoms, Denies Chest pain or palpation, no swelling to lower ext. In ED workup was found to be in Complete heart block Imaging:chest xray Pulmonary vascular pattern appears normal there were no effusions or infiltrates. Home Medications: Breo Ellipta inhaler once a day aspirin 81 mg daily pro air inhaler every 4 hours p.r.n. resume rosuvastatin 10 mg daily metoprolol succinate 25 mg 1/2 tablet b.i.d. The patient seen in Ed 10 she fully awake and oriented x3, she become dyspneic during my visit she currently on nasal cannula 2 liters: Dr Boykin evaluated patient possible permanent pace maker. REVIEW OF SYSTEMS a 14 point ROS obtained all relevant positive documented otherwise ROS negative PAST MEDICAL HISTORY: [ ] HTN, HLD,PA Heart disease carotid disease PAST SURGICAL HISTORY: [ ] left carotid endarterectomy Cataract sx bowel resection and reanastomosis PAST SOCIAL HISTORY: [ ]former smoker, occasional drinks ETOH FAMILY HISTORY: [ ] noncontributory Coded Allergies: Sulfa (Sulfonamide Antibiotics) (Verified Allergy, Unknown, 12/26/19) PHYSICAL EXAM GENERAL APPEARANCE: The patient is awake, alert, and oriented, acute cardiopulmonary distress.dyspenic on nasal cannula 2 liter NEUROLOGICAL: Cranial nerves II-XII grossly intact. Motor is 5/5 in bilateral upper and lower extremities proximal to distal. No sensory deficits. HEENT: Face is symmetric. Pupils are equal and reactive. Extraocular movements are intact. NECK: Supple. No JVD. No thyromegaly. No submental, submandibular, pre- /postauricular, occipital or supraclavicular lymphadenopathy. CHEST: Normal chest expansion. No Telemetry. LUNGS: Absence of any rales, rhonchi or any wheezing. CARDIOVASCULAR: Regular. S1 and S2 normal. bradycardiac: rate 60 No appreciable rubs, murmurs or gallops. ABDOMEN: Soft, nontender, and nondistended. There is no rebound, voluntary guarding, or rigidity. : Deferred. No Paredes. EXTREMITIES: Non-edematous and not cyanotic. No clubbing. Good capillary refill. SKIN: No skin breakdown. Vital Sign (Last 24 Hours) 02/06/25 02/06/25 07:28 08:00 Temp 98.2 Pulse 57 Resp 22 B/P (MAP) 134/56 Pulse Ox 97 O2 Delivery Nasal Cannula* O2 Flow Rate 2 FiO2 28 LABS: Laboratory: Test 02/06/25 07:49 Range/Units White Blood Count 11.5 H 4.8-10.8 K/uL Red Blood Count 5.20 4.00-5.50 MIL/uL Hemoglobin 15.6 12.0-16.0 g/dL Hematocrit 46.9 36-48 % Mean Corpuscular Volume 90.2 79-99 fL Mean Corpuscular Hemoglobin 30.0 27.0-33.0 pg Mean Corpuscular Hemoglobin Concent 33.3 32.0-36.0 g/dL Red Cell Distribution Width 13.1 11.0-15.5 % Platelet Count 281 130-400 K/uL Mean Platelet Volume 9.8 7.5-10.5 fL Immature Granulocyte % (Auto) 0.3 0-1 % Neutrophils (%) (Auto) 79.4 H 40.0-77.0 % Lymphocytes (%) (Auto) 13.7 L 21.0-51.0 % Monocytes (%) (Auto) 6.1 3.0-13.0 % Eosinophils (%) (Auto) 0.2 0.0-8.0 % Basophils (%) (Auto) 0.3 0.0-5.0 % Neutrophils # (Auto) 9.1 H 1.8-7.7 K/uL Lymphocytes # (Auto) 1.6 1.0-4.8 K/uL Monocytes # (Auto) 0.7 0.1-1.0 K/uL Eosinophils # (Auto) 0.02 0.00-0.70 K/uL Basophils # (Auto) 0.03 0.00-0.20 K/uL Absolute Immature Granulocyte (auto 0.04 0-1 K/uL Nucleated Red Blood Cells 0.0 0.0-0.19 % Prothrombin Time 11.2 9.6-11.6 SEC Prothromb Time International Ratio 1.06 0.85-1.15 Activated Partial Thromboplast Time 24.3 L 26.3-35.5 SEC Sodium Level 142 136-145 mmol/L Potassium Level 4.9 3.5-5.1 mmol/L Chloride Level 106 101-111 mmol/L Carbon Dioxide Level 23 21-32 mmol/L Blood Urea Nitrogen 25 H 7-18 mg/dL Creatinine 1.1 H 0.5-1.0 mg/dL Glomerular Filtration Rate Calc 50 >90 mL/min Random Glucose 177 H 70-105 mg/dL Total Calcium 9.7 8.5-10.1 mg/dL Magnesium Level 2.10 1.80-2.40 mg/dL Total Creatine Kinase 94 21-232 U/L Troponin I High Sensitivity 6 4-50 ng/L B-Type Natriuretic Peptide 765 H 0-100 pg/mL DIAGNOSTICS / RADIOLOGY: [ ] ASSESSMENT: acute resp failure with hypoxia requiring oxygen supplemental: POA symptomatic Complete Heart Block POA Near syncope episodes POA acute on Chronic combined with EF 45/50% with exacerbation POA Leukocytosis POA Essential HTN: uncontrolled chronic problem: COPD: former smoker Carotid artery disease s/p Left carotid endarterectomy 2010 PLAN: Admit:ICU condition:Guarded Status:Full code IVF: Heplock: fluid contradicted Diet: NPO Consultants: Critical Care: assessment coordinator and EPS Dopamine HCL IV per protocol fluid restriction: 1200 Daily weight, Strict I/O Procedure: Possible PPM Labs: TSH level now Test: Echo to eval LV function oxygen supplemental to keep O2 above > 92 %, BreoEllip: Inhaler scheduled daily aspiration precaution: HOB elevated at 45 degree at all time. Labs cbc, cmp, mag+ in am Replace electrolytes as needed as per protocol to keep potassium above 4.0 magnesium 2.0. Home medications pending to be reviewed by RN nurse. Fall precaution PRN: MEDICATIONS Tylenol 650 mg po every 4 hrs for fever zofran 4 mg IV every 6 hrs for n/vfamo bowel regiment: lactulose 20 gm PO BID PRN constipation Pain management: Supportive measures: DVT ppx, GI ppx PT eval and treat: PT/OT all questions answered time spent: > 35 min Supervising MD: Dr. Horvath c/d This document was generated in part using voice recognition software, occasional wrong word or sound alike substitutions may have occurred due to the inherent limitations of voice recognition software. Read the chart carefully and recognize using context, where the substitutions have occurred. Although every effort was made to edit the content, health consultant and typing errors may occur ADVANCED CARE PLANNING 1. Which of the following were discussed? Hospice Care - Yes / No Therapeutic options - Yes / No Advance Directives - Yes / No Other discussions - 2. Discussed with who? 3. Voluntary nature of this service was explained to the patient? Yes / No 4. Amount of time spent - 5. Reviewed by Physician? (if this service was performed by NPP) Yes / No ADVANCED CARE PLANNING 1. Which of the following were discussed? Hospice Care - Yes / No Therapeutic options - Yes / No Advance Directives - Yes / No Other discussions - 2. Discussed with who? 3. Voluntary nature of this service was explained to the patient? Yes / No 4. Amount of time spent - 5. Reviewed by Physician? (if this service was performed by NPP) Yes / No ATTESTATION BY PHYSICIAN I have seen and examined the patient. I reviewed the documentation, medical decision making, and treatment plan as noted by the mid-level provider above. I agree with the findings and plan of care. BELLA HORVATH MD, ELIZABETH NP February 06, 2025 09:09
--- NOTE | 2025-02-06 09:22 | NUR ---
CRITICAL CARE CONSULT: SPOKE TO JAYCOB BOUCHER FROM [facility]. ORDERS OBTAINED
--- NOTE | 2025-02-06 09:23 | NUR ---
RESPIRATORY WANDA MATERNAL FETAL PHYSICIAN INFORMED NEED FOR ABG
[2025-02-06] MEDS ORDERED: acetaMINOPHEN 325 MG TAB PO PRN (09:30)
[2025-02-06] MEDS ORDERED: ondanSETRON 4MG INJ IVP PRN (09:30)
[2025-02-06 09:38] LABS: APPEARANCE,URINE CLEAR (CLEAR); BILIRUBIN,URINE NEGATIVE (NEGATIVE); COLOR,URINE COLORLESS (YELLOW); GLUCOSE, URINE (UA) NEGATIVE (NEGATIVE); KETONES,URINE NEGATIVE (NEGATIVE); LEUKOCYTE ESTERASE ,URINE 25 Leu/uL (NEGATIVE); NITRATE,URINE NEGATIVE (NEGATIVE); OCCULT BLOOD,URINE NEGATIVE (NEGATIVE); PROTEIN,URINE NEGATIVE (NEGATIVE); UROBILINOGEN,URINE 0.2 mg/dL (0.2-1.0)
--- NOTE | 2025-02-06 09:39 | HMCIMG ---
Exam Type: CHEST 1VW Clinical Information: CP Comparison: None Findings: The lungs are clear of infiltrates. The heart is normal in size. The bony and soft tissue structures of the chest are unremarkable. Impression: Clear lungs.
[2025-02-06 09:46] LABS: ADD UA MICROSCOPIC YES
[2025-02-06 09:48] LABS: BACTERIA,URINE RARE /HPF (None Seen); RBC,URINE 0-1 /HPF (0-1); SQUAMOUS EPITHELIAL CELL,UR RARE /HPF (0-2)
[2025-02-06 09:51] LABS: ABG BASE EXCESS -4.2 mmol/L (-2.0-3.0); ABG HCO3 17.3 mmol/L (21.0-28.0); ABG OXYGEN SATURATION 94.5 % (94.0-98.0); ABG PCO2 24 mmHg (32-45); ABG PH 7.473 (7.350-7.450); CARBON MONOXIDE 0.3 % (0.5-1.5); DEVICE COMMENT RR JESSE RN; HHb 5.5; PO2, ARTERIAL BG 70.2 mmHg (83.0-108.0); VENT MODE, BG NC (ROOM AIR)
[2025-02-06 09:54] LABS: COVID19 (SARS ANTIGEN RAPID) PRESUMPTIVE NEGATIVE (NEGATIVE); INFLUENZA TYPE A Negative For Type A (NEGATIVE); INFLUENZA TYPE B Negative For Type B (NEGATIVE)
[2025-02-06] MEDS ORDERED: DOPamine HCL 400 MG/D5%-WATER 250 ML IV PRN (10:00)
--- NOTE | 2025-02-06 12:20 | NUR ---
MD ASMITA AT BEDSIDE; INFORMED OF PATIENT STATUS CHANGE
--- NOTE | 2025-02-06 12:30 | NUR ---
Order received and EMR reviewed. Patient noted with complete heart block, pending cardiology intervention. PT team to follow.
--- NOTE | 2025-02-06 12:34 | HMCSR ---
APPROVED REPORT EXAM: Two-dimensional and M-mode echocardiogram with Doppler and color Doppler. INDICATION ICD: Pre-op pacemaker placement 2D Dimensions IVSd1.2 (0.7-1.1cm)LVEF(%)37.3 (>50%)LVED Vol(simp.)72.0 mL LVDd3.6 (3.8-5.6cm)FS(%)18 %LVES Vol(simp.)37.0 mL PWd1.1 (0.7-1.1cm)LA (2D)2.7 (1.6-4.0cm)LVEF(%, simp.)49 % IVSs1.2 cmAo Root(2D)2.8 (2.0-3.7cm)LA ESV INDEX (BP)25.46 mL/m2 LVDs3.0 (2.5-4.0cm)LVOT diam2.1 (1.8-2.4cm) PWs1.5 cmIVC diam1.7 cm M-Mode Dimensions EPSS0.7 cm LA (MM)3.7 (1.6-4.0cm) Ao Root(MM)3.3 (2.0-3.7cm) Aortic Valve AoV Vmax1.4 m/Ileana Peak GR8.1 mmHgLVOT Vmax1.1 m/s AoV VTI0.3 mAo Mean GR4.9 mmHgLVOT VTI0.25 m BENNY (VMAX)2.37 cm2AVA (VTI) 2.4 cm2 Mitral Valve MV E Vmax71.0 cm/sDECEL Qmea731 ms MV A Vmax97.3 cm/sP 1/2 T53 ms E/A ratio0.7MVA (PHT)4.2 cm2 TDI E/E' Fhfglg60.6E/E' Batayrv00.3 Medial E' Peak V4.04 cm/sLateral E' Peak V4.36 cm/s Pulmonary Valve PV Vmax1.4 m/sPV VTI0.22 mPV Mean GR2.9 mmHg PV Peak GR7.5 mmHg Tricuspid Valve TR Vmax1.0 m/sRAP (EST) 3 mmHgRVSP6.9 mmHg TR Peak GR3.9 mmHg Left Ventricle The left ventricle is normal size. There is normal LV segmental wall motion. There is normal left blas tricular wall thickness. LVEF is 50-55%. Stage I diastolic dysfunction. Right Ventricle The right ventricle is normal size. The right ventricular systolic function is normal. Atria The left atrium size is normal. The right atrium size is normal. Chiari network is noted in right atr ium. Aortic Valve Aortic valve is trileaflet, mildly thickened and opens well. No aortic regurgitation is present. Ther e is no aortic valvular stenosis. Mitral Valve The mitral valve is mildly thickened. Mitral valve leaflets open well. There is mild mitral annular c alcification. There is no mitral valve regurgitation noted. There is no mitral valve stenosis. Tricuspid Valve The tricuspid valve is normal in structure. There is trace of tricuspid valve regurgitation noted. Pulmonic Valve The pulmonary valve is normal in structure. There is no pulmonic valvular regurgitation. Great Vessels The aortic root is normal in size. The IVC is normal in size and collapses >50% with inspiration. Pericardium There is no pericardial effusion. Prominent anterior epicardial fat pad is present. Other Information Quality : Adequate Conclusion The mitral valve is mildly thickened. Mitral valve leaflets open well. There is mild mitral annular calcification. There is no pericardial effusion. Prominent anterior epicardial fat pad is present.
--- NOTE | 2025-02-06 12:35 | NUR ---
CONSENT FOR EMERGENT PACEMAKER OBTAINED
--- NOTE | 2025-02-06 12:39 | NUR ---
PATIENT TAKEN TO [employer] FOR EMERGENT PACEMAKER AT THIS TIME
--- NOTE | 2025-02-06 12:39 | NUR ---
CONSENT OBTAINED FOR EMERGENT PPM. DR WASHINGTON AT BEDSIDE. CATH CREW JUST ARRIVED TO TAKE PT TO [facility]. THEY BORROWED OUR ZOLL. XANDER MEYER FOLLOWED TO RETURN OUR ZOLL MONITOR
--- NOTE | 2025-02-06 12:45 | NUR ---
BELONGINGS GIVEN TO AND WALKED TO DESIGNATED AREA
[2025-02-06] MEDS ORDERED: LIDOCAINE HCL 1% MDV 50ML VIAL ONE (12:46)
[2025-02-06] MEDS ORDERED: BUPIvacaine/PF 0.25% 30ML VIAL IJ ONE (12:46)
[2025-02-06] MEDS ORDERED: ceFAZolin SODIUM 1 GM VIAL ONE (12:46)
[2025-02-06] MEDS ORDERED: HEParin-NS 1,000 UNIT/500 ML 0 ML IV ONE (12:46)
[2025-02-06] MEDS ORDERED: SODIUM BICARB 50MEQ 50ML VIAL 50 ML ONE (12:46)
[2025-02-06] MEDS ORDERED: FENTanyl CITRate PF 50 MCG/1 ML 2ML VIAL ONE ×2 (13:03→13:40)
[2025-02-06] MEDS ORDERED: MIDAZOLAM HCL 1 MG/ML 2ML VIAL ONE ×3 (13:03→13:40)
[2025-02-06] MEDS ORDERED: acetaMINOPHEN 500 MG TABLET PO PRN (14:30)
--- NOTE | 2025-02-06 15:22 | NUR ---
DCP: HOME Pt recently moved into [facility] ([facility]) with her new Rolando Hughes [phone]. Pt reports being able to complete ADLs independently. Pt reports living in the area where she does everything on her own. Pt does not have any DME. PCP is Zain Hanley and uses [facility] pharmacy for any RX needs. At OR pt will return to [facility] and will assist with transportation. Addendum: 02/06/25 at 1525 by MARGAUX WORRELL SS Amended: Links added.
--- NOTE | 2025-02-06 16:47 | CONS ---
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 On evaluation of patient's via EMS she has a episode of third-degree AV block. She was given 250 mL of normal saline and spontaneously converted back to sinus rhythm in the 60s. On arrival to the ED patient had a 2nd episode of third-d egree AV block with heart rate in the 30s and spontaneously converted back to sinus rhythm in the 60s. .There was a plan of a TVPM at one point but due to frequent recurrent episodes of third-degree black and sinus rhythm the patient was subsequently taken for permanent pacemaker placement per Cardiology team. We are consulted for critical care management. On assessment patient is awake alert and oriented x3 she is status post permanent pacemaker placement wearing her left arm sling. She offers no co mplaints at this time denies any chest pain palpitations weakness or shortness for breath. At the time assessment patient in no apparent distress saturating 96% on room air hemodynamically stable and afebrile. Initial white count today had a slight elevation of 11.5 and neutrophils of 79.4. On chemistry BOOM of seven by creatinine of 1.1 GFR of 50 BUN 25 glucose 177 mg/dL and BNP of 765. TSH was within normal limits. She was tested for COVID and flu and was negative. ABG showed a pH of 7.47 pCO2 of 24 PO2 of 70.2 and a bicarb of 17.3 on initial assessment in the ED. urinalysis remarkable for leukocyte esterase of 25 and WBCs of 2 to five. She denied any signs and symptoms of dysuria, frequent urination or urinary retention. For now we will continue to follow cardiology recommendations. We will resume some of her home medications and add Pulmicort nebulizer treatments twice a day and Singulair for COPD. PAST MEDICAL HX: see above PAST SURGICAL HX: noncontributory SOCIAL HISTORY: No tobacco, ETOH, or illicit drug use Coded Allergies: Sulfa (Sulfonamide Antibiotics) (Verified Allergy, Unknown, 12/26/19) REVIEW OF SYSTEMS: 12 point ROS reviewed with patient. Pertinent positives mentioned above. Otherwise negative. PHYSICAL EXAM: GENERAL: alert, weak, awake oriented x 3 HEENT: EOMI, Sclera non icteric, moist mucosa NECK: Supple, no JVD, trachea midline , left arm swing , dressing to left chest wall clean dry and intact, LUNGS: Clear breath sounds bilaterally. No wheezes HEART: Regular rate and rhythm. Normal S1 and S2, without murmurs ABD: Abdomen soft, nontender. Bowel sounds present EXT: No clubbing cyanosis or edema NEURO: Alert and oriented to person, follows commands Vital Signs (last 8hr) Date Time Temp Pulse Resp B/P (MAP) Pulse Ox O2 Delivery O2 Flow Rate FiO2 02/06/25 16:23 97 Room Air* 0 21 02/06/25 12:00 98.1 60 22 142/65 94 Nasal Cannula* 2 28 02/06/25 11:00 98.1 60 22 131/68 93 Nasal Cannula* 2 28 02/06/25 10:00 66 22 150/59 94 Nasal Cannula* 2 28 02/06/25 09:00 98.1 66 22 151/61 94 Nasal Cannula* 2 28 LABS: Hematology Labs: Test 02/06/25 07:49 Range/Units White Blood Count 11.5 H 4.8-10.8 K/uL Red Blood Count 5.20 4.00-5.50 MIL/uL Hemoglobin 15.6 12.0-16.0 g/dL Hematocrit 46.9 36-48 % Mean Corpuscular Volume 90.2 79-99 fL Mean Corpuscular Hemoglobin 30.0 27.0-33.0 pg Mean Corpuscular Hemoglobin Concent 33.3 32.0-36.0 g/dL Red Cell Distribution Width 13.1 11.0-15.5 % Platelet Count 281 130-400 K/uL Mean Platelet Volume 9.8 7.5-10.5 fL Immature Granulocyte % (Auto) 0.3 0-1 % Neutrophils (%) (Auto) 79.4 H 40.0-77.0 % Lymphocytes (%) (Auto) 13.7 L 21.0-51.0 % Monocytes (%) (Auto) 6.1 3.0-13.0 % Eosinophils (%) (Auto) 0.2 0.0-8.0 % Basophils (%) (Auto) 0.3 0.0-5.0 % Neutrophils # (Auto) 9.1 H 1.8-7.7 K/uL Lymphocytes # (Auto) 1.6 1.0-4.8 K/uL Monocytes # (Auto) 0.7 0.1-1.0 K/uL Eosinophils # (Auto) 0.02 0.00-0.70 K/uL Basophils # (Auto) 0.03 0.00-0.20 K/uL Absolute Immature Granulocyte (auto 0.04 0-1 K/uL Nucleated Red Blood Cells 0.0 0.0-0.19 % Chemistry Labs: Test 02/06/25 10:23 02/06/25 07:49 Range/Units Troponin I High Sensitivity 8 4-50 ng/L Sodium Level 142 136-145 mmol/L Potassium Level 4.9 3.5-5.1 mmol/L Chloride Level 106 101-111 mmol/L Carbon Dioxide Level 23 21-32 mmol/L Blood Urea Nitrogen 25 H 7-18 mg/dL Creatinine 1.1 H 0.5-1.0 mg/dL Glomerular Filtration Rate Calc 50 >90 mL/min Random Glucose 177 H 70-105 mg/dL Total Calcium 9.7 8.5-10.1 mg/dL Magnesium Level 2.10 1.80-2.40 mg/dL Total Creatine Kinase 94 21-232 U/L B-Type Natriuretic Peptide 765 H 0-100 pg/mL Thyroid Stimulating Hormone (TSH) 1.06 # 0.36-3.74 uIU/mL Coagulation Labs: Test 02/06/25 07:49 Range/Units Prothrombin Time 11.2 9.6-11.6 SEC Prothromb Time International Ratio 1.06 0.85-1.15 Activated Partial Thromboplast Time 24.3 L 26.3-35.5 SEC DIAGNOSTICS / RADIOLOGY RESULTS: [ ] IMAGING REPORT Signed PATIENT: JENN MURRAY MR#: [id number] : 1940 SEX: F AGE: 84 LOCATION: [facility] ORDER [id number] STATUS: ADM IN REPORT#: [id number] SERVICE REASON: PREOP PACEMAKER PLACEMENT ORDERING PHYSICIAN: DEJUAN DU MD PROCEDURE: ECHO [facility] - ECHO 2-D COMPLETE APPROVED REPORT EXAM: Two-dimensional and M-mode echocardiogram with Doppler and color Doppler. INDICATION ICD: Pre-op pacemaker placement 2D Dimensions IVSd 1.2 (0.7-1.1cm) LVEF(%) 37.3 (>50%) LVED Vol(simp.) 72.0 mL LVDd 3.6 (3.8-5.6cm) FS(%) 18 % LVES Vol(simp.) 37.0 mL PWd 1.1 (0.7-1.1cm) LA (2D) 2.7 (1.6-4.0cm) LVEF(%, simp.) 49 % IVSs 1.2 cm Ao Root(2D) 2.8 (2.0-3.7cm) LA ESV INDEX (BP) 25.46 mL/m2 LVDs 3.0 (2.5-4.0cm) LVOT diam 2.1 (1.8-2.4cm) PWs 1.5 cm IVC diam 1.7 cm M-Mode Dimensions EPSS 0.7 cm LA (MM) 3.7 (1.6-4.0cm) Ao Root(MM) 3.3 (2.0-3.7cm) Aortic Valve AoV Vmax 1.4 m/s Ao Peak GR 8.1 mmHg LVOT Vmax 1.1 m/s AoV VTI 0.3 m Ao Mean GR 4.9 mmHg LVOT VTI 0.25 m BENNY (VMAX) 2.37 cm2 BENNY (VTI) 2.4 cm2 Mitral Valve MV E Vmax 71.0 cm/s DECEL Time 184 ms MV A Vmax 97.3 cm/s P 1/2 T 53 ms E/A ratio 0.7 MVA (PHT) 4.2 cm2 TDI E/E' Medial 17.6 E/E' Lateral 16.3 Medial E' Peak V 4.04 cm/s Lateral E' Peak V 4.36 cm/s Pulmonary Valve PV Vmax 1.4 m/s PV VTI 0.22 m PV Mean GR 2.9 mmHg PV Peak GR 7.5 mmHg Tricuspid Valve TR Vmax 1.0 m/s RAP (EST) 3 mmHg RVSP 6.9 mmHg TR Peak GR 3.9 mmHg Left Ventricle The left ventricle is normal size. There is normal LV segmental wall motion. There is normal left ventricular wall thickness. LVEF is 50-55%. Stage I diastolic dysfunction. Right Ventricle The right ventricle is normal size. The right ventricular systolic function is normal. Atria The left atrium size is normal. The right atrium size is normal. Chiari network is noted in right atrium. Aortic Valve Aortic valve is trileaflet, mildly thickened and opens well. No aortic regurgitation is present. There is no aortic valvular stenosis. Mitral Valve The mitral valve is mildly thickened. Mitral valve leaflets open well. There is mild mitral annular calcification. There is no mitral valve regurgitation noted. There is no mitral valve stenosis. Tricuspid Valve The tricuspid valve is normal in structure. There is trace of tricuspid valve regurgitation noted. Pulmonic Valve The pulmonary valve is normal in structure. There is no pulmonic valvular regurgitation. Great Vessels The aortic root is normal in size. The IVC is normal in size and collapses >50% with inspiration. Pericardium There is no pericardial effusion. Prominent anterior epicardial fat pad is present. Other Information Quality : Adequate Conclusion The mitral valve is mildly thickened. Mitral valve leaflets open well. There is mild mitral annular calcification. There is no pericardial effusion. Prominent anterior epicardial fat pad is present. DICTATED BY: DEJUAN DU MD DATE: 02/06/25 0832 ELECTRONICALLY SIGNED BY: DEJUAN DU MD DATE: 02/06/25 9379 PLAN pt reporst just complete medrol pack and refusing steroids due to irritability and intolerance. Given exposure of smoking for many years, patient has a developed COPD with exacerbation. Patient to follow up as outpatient at pulmonary clinic in two weeks for PFTs, we will continue with nebulizer treatments with atrovent, Pulmicort, steroids. Singulair 10 mg daily Maintain O2 sats above 88% smoking cessation Influenza a and B negative, COVID-19 negative, Chest x-ray in the morning, wean off O2 as tolerated. We will need to continue to monitor patient closely, give supplemental oxygen as tolerated to keep SaO2 greater than 88%, Nebulizer Duoneb, Pulmicort, Steroids, LVEP: incentive symmetry, Diuretic if appropriate, Antileukotriene agents: montelukast. Antibiotics to cover CAp is appropriate. We will follow along with you. NEURO: Minimize central acting medications as possible. Maintain fall precautions, adequate lighting during the day PULMONARY: Supplemental 02 as needed. Maintain aspiration precautions at all times CARDIOVASCULAR: Follow hemodynamics. Vital signs per facility protocol GI & NUTRITION: Continue with nutritional support. Continue stool softeners and laxatives as needed. KIDNEYS & ELECTROLYTES: Strict monitoring of intake, output and overall fluid balance. Avoid nephrotoxic medications to the extent possible. Medications to be dosed according to renal function. Monitor electrolytes and replace as needed ENDOCRINE: Maintain blood glucose between 100-180 at all times. Hypoglycemia protocol in place INFECTIOUS DISEASE: Trend temperature, WBC and procalcitonin level Follow cultures, deescalate antibiotics as soon as possible. Panculture if new onset fever ONCOLOGY/HEMATOLOGY/COAGULATION: Monitor for s/s of bleeding Monitor hemoglobin, coagulation studies as needed SKIN: Pressure ulcer prevention per facility protocol Specialty mattress ORTHO/REHAB: Continue PT/OT Prophylaxis: Continue GI and DVT prophylaxis Code Status: Full Resuscitation Disposition: TBD Other: Total patient care time exceeds 35 minutes excluding all procedures. DEANA RESTREPO February 06, 2025 16:47
[2025-02-06] MEDS ORDERED: LACT-441 PO ×2 (16:51→16:52)
[2025-02-06] MEDS ORDERED: PRED20TA3 PO (16:51)
[2025-02-06] MEDS ORDERED: METO-408 PO (16:51)
[2025-02-06] MEDS ORDERED: ALBUTEROL INHALER 90MCG/INH IH PRN (17:00)
[2025-02-06] MEDS ORDERED: LACTULOSE 20 GM/30 ML UDCUP PO PRN (17:00)
[2025-02-06] MEDS: acetaMINOPHEN WITH coDEINE 1 TAB TAB PO PRN (18:24)
[2025-02-06] MEDS: BUDESONIDE 0.5 MG/2 ML INH IH SCH (18:33)
[2025-02-07] VITALS (12 sets, daily range): BP systolic 112–159; BP diastolic 41–73; PULSE 57–75; RESP 17–20; TEMP 97–98.7; O2SAT 88–96
[2025-02-07 08:40] LABS: BASOPHILS # (AUTO) 0.08 K/uL (0.00-0.20); EOSINOPHILS # (AUTO) 0.08 K/uL (0.00-0.70); HEMATOCRIT 43.6 % (36-48); IMMATURE GRANULOCYTE ABSOLUTE 0.02 K/uL (0-1); LYMPHOCYTES # (AUTO) 1.9 K/uL (1.0-4.8); LYMPHOCYTES % (AUTO) 24.5 % (21.0-51.0); MEAN CORPUSCULAR HEMOGLOBIN 30.3 pg (27.0-33.0); MEAN CORPUSCULAR HGB CONC 33.5 g/dL (32.0-36.0); MEAN CORPUSCULAR VOLUME 90.5 fL (79-99); MONOCYTES # (AUTO) 0.9 K/uL (0.1-1.0); MONOCYTES % (AUTO) 11.2 % (3.0-13.0); NEUTROPHILS # (AUTO) 4.9 K/uL (1.8-7.7); PLATELET COUNT (AUTO) 203 K/uL (130-400); RED BLOOD CELL COUNT(AUTO) 4.82 MIL/uL (4.00-5.50); RED CELL DISTRIBUTION WIDTH 13.2 % (11.0-15.5); WHITE BLOOD COUNT (AUTO) 7.9 K/uL (4.8-10.8)
[2025-02-07 08:54] LABS: ALBUMIN 3.6 g/dL (3.5-5.0); BILIRUBIN,TOTAL 0.5 mg/dL (0.2-1.0); CREATININE 1.1 mg/dL (0.5-1.0); TOTAL PROTEIN, SERUM 6.8 g/dL (6.0-8.3)
--- NOTE | 2025-02-07 08:54 | PN ---
[facility] PROGRESS NOTE Date of Service: February 07, 2025 Time of Service: 08:47 SUBJECTIVE: [ ] Admission date: PCP: Tami Marques MD This is 84-year-old female presents with generalized weakness, dyspnea with Minimal exertion. Onset 2 days. severity: severe fatigue, aggravating factors: activity, alleviating factors none: Reports having of episodes of near fainting. Assoicated factors: GI symptoms, Denies Chest pain or palpation, no swelling to lower ext. In ED workup was found to be in Complete heart block 02/07/25 Patient does have a underlying condition COPD smoker. During my visit, the patient is comfortable, underwent pacemaker implantation yesterday, tolerated well, denied chest pain, denied shortness a breath, no nausea, no vomiting. She is currently on supplemental oxygen via nasal cannula 3 L, saturating 98%. Per my discussion with the RN as well as RT, on room air, patie nt desaturated to 88%, pulmonary consultation requested. REVIEW OF SYSTEMS a 14 point ROS obtained all relevant positive documented otherwise ROS negative PHYSICAL EXAM GENERAL APPEARANCE: The patient is awake, alert, and oriented, acute cardiopulmonary distress.dyspenic on nasal cannula 2 liter NEUROLOGICAL: Cranial nerves II-XII grossly intact. Motor is 5/5 in bilateral upper and lower extremities proximal to distal. No sensory deficits. HEENT: Face is symmetric. Pupils are equal and reactive. Extraocular movements are intact. NECK: Supple. No JVD. No thyromegaly. No submental, submandibular, pre- /postauricular, occipital or supraclavicular lymphadenopathy. CHEST: Normal chest expansion. No Telemetry. LUNGS: Absence of any rales, rhonchi or any wheezing. CARDIOVASCULAR: Regular. S1 and S2 normal. bradycardiac: rate 60 No appreciable rubs, murmurs or gallops. ABDOMEN: Soft, nontender, and nondistended. There is no rebound, voluntary guarding, or rigidity. : Deferred. No Paredes. EXTREMITIES: Non-edematous and not cyanotic. No clubbing. Good capillary refill. SKIN: No skin breakdown. Vital Signs (last 8hr) Date Time Temp Pulse Resp B/P (MAP) Pulse Ox O2 Delivery O2 Flow Rate FiO2 02/07/25 07:29 63 20 N/Cannula Low lpm 2.0 02/07/25 07:28 63 20 02/07/25 07:00 97.9 60 18 112/60 94 Nasal Cannula 3.0 02/07/25 03:00 97.0 64 18 118/41 96 Nasal Cannula 3.0 LABS: Laboratory: Test 02/07/25 08:30 02/06/25 10:23 02/06/25 09:49 02/06/25 09:10 Range/Units White Blood Count 7.9 4.8-10.8 K/uL Red Blood Count 4.82 4.00-5.50 MIL/uL Hemoglobin 14.6 12.0-16.0 g/dL Hematocrit 43.6 36-48 % Mean Corpuscular Volume 90.5 79-99 fL Mean Corpuscular Hemoglobin 30.3 27.0-33.0 pg Mean Corpuscular Hemoglobin Concent 33.5 32.0-36.0 g/dL Red Cell Distribution Width 13.2 11.0-15.5 % Platelet Count 203 # 130-400 K/uL Mean Platelet Volume 9.7 7.5-10.5 fL Immature Granulocyte % (Auto) 0.3 0-1 % Neutrophils (%) (Auto) 62.0 40.0-77.0 % Lymphocytes (%) (Auto) 24.5 21.0-51.0 % Monocytes (%) (Auto) 11.2 3.0-13.0 % Eosinophils (%) (Auto) 1.0 0.0-8.0 % Basophils (%) (Auto) 1.0 0.0-5.0 % Neutrophils # (Auto) 4.9 1.8-7.7 K/uL Lymphocytes # (Auto) 1.9 1.0-4.8 K/uL Monocytes # (Auto) 0.9 0.1-1.0 K/uL Eosinophils # (Auto) 0.08 0.00-0.70 K/uL Basophils # (Auto) 0.08 0.00-0.20 K/uL Absolute Immature Granulocyte (auto 0.02 0-1 K/uL Nucleated Red Blood Cells 0.0 0.0-0.19 % Troponin I High Sensitivity 8 4-50 ng/L Blood Gas Specimen Type Arterial Arterial Blood pH 7.473 H 7.350-7.450 Arterial Blood Partial Pressure CO2 24 L 32-45 mmHg Arterial Blood Partial Pressure O2 70.2 L 83.0-108.0 mmHg Arterial Blood HCO3 17.3 L 21.0-28.0 mmol/L Arterial Blood Oxygen Saturation 94.5 94.0-98.0 % Arterial Blood Base Excess -4.2 L -2.0-3.0 mmol/L Hemoglobin (Blood Gas) 15.0 12.0-16.0 g/dL Sodium (Blood Gas) 142 136-145 MMOL/L Bedside Potassium (Blood Gas) 3.9 3.4-4.5 MMOL/L Bedside Chloride (Blood Gas) 109 H 98-107 MMOL/L Bedside Glucose (Blood Gas) 134 H 65-95 MG/DL Bedside Ionized Calcium (Blood Gas) 1.19 1.15-1.33 MMOL/L Bedside Lactic Acid (Blood Gas) 1.94 H 0.36-0.75 MMOL/L Blood Gas Temperature 37.0 35.5-37.0 CELSIUS Blood Gas Flow-by 2.00 0.00-15.00 L/min Blood Gas Vent Mode NC ROOM AIR FiO2 28.0 % Blood Gas Specimen Comment RR JENNI RN Urine Color COLORLESS YELLOW Urine Appearance CLEAR CLEAR Urine pH 6.0 5.0-8.0 Urine Specific Bliss 1.008 1.001-1.031 Urine Protein NEGATIVE NEGATIVE mg/dL Urine Glucose (UA) NEGATIVE NEGATIVE mg/dL Urine Ketones NEGATIVE NEGATIVE mg/dL Urine Occult Blood NEGATIVE NEGATIVE Urine Nitrate NEGATIVE NEGATIVE Urine Bilirubin NEGATIVE NEGATIVE mg/dL Urine Urobilinogen 0.2 0.2-1.0 mg/dL Urine Leukocyte Esterase 25 H NEGATIVE Og/uL Urine RBC 0-1 0-1 /HPF Urine WBC 2-5 H 0-1 /HPF Urine Squamous Epithelial Cells RARE 0-2 /HPF Urine Bacteria RARE None Seen /HPF Influenza Type A Antigen Negative For Type A NEGATIVE Influenza Type B Antigen Negative For Type B NEGATIVE SARS-CoV-2 Antigen (Rapid) PRESUMPTIVE NEGATIVE NEGATIVE Test 02/06/25 07:49 Range/Units Prothrombin Time 11.2 9.6-11.6 SEC Prothromb Time International Ratio 1.06 0.85-1.15 Activated Partial Thromboplast Time 24.3 L 26.3-35.5 SEC Sodium Level 142 136-145 mmol/L Potassium Level 4.9 3.5-5.1 mmol/L Chloride Level 106 101-111 mmol/L Carbon Dioxide Level 23 21-32 mmol/L Blood Urea Nitrogen 25 H 7-18 mg/dL Creatinine 1.1 H 0.5-1.0 mg/dL Glomerular Filtration Rate Calc 50 >90 mL/min Random Glucose 177 H 70-105 mg/dL Total Calcium 9.7 8.5-10.1 mg/dL Magnesium Level 2.10 1.80-2.40 mg/dL Total Creatine Kinase 94 21-232 U/L Thyroid Stimulating Hormone (TSH) 1.06 # 0.36-3.74 uIU/mL Current Medications Medications (Trade) Dose Ordered Sig/Crystal Route PRN Reason Start Time Stop Time Status Last Admin Dose Admin Acetaminophen (TYLenol 325MG TAB) 650 mg Q4H PRN PO TEMPERATURE GREATER THAN 101.5 02/06/25 09:30 03/08/25 09:29 Acetaminophen (TYLenol 500MG TAB) 1,000 mg Q6H PRN PO MILD PAIN (1-3) 02/06/25 14:30 03/08/25 14:29 Acetaminophen/ Codeine Phosphate (TYLenol-coDEINE TAB) 2 tab Q4H PRN PO MODERATE PAIN LEVEL 4 TO 10 02/06/25 14:30 03/08/25 14:29 02/07/25 04:51 2 TAB Albuterol Sulfate (Ventolin Hfa) 1 inh QID PRN IH wheezing 02/06/25 17:00 03/08/25 16:59 Aspirin (Aspirin 81mg Chew Tab) 81 mg DAILY PO 02/07/25 09:00 03/09/25 08:59 Atorvastatin Calcium (LIPItor 40MG) 40 mg DAILY PO 02/07/25 09:00 03/09/25 08:59 Budesonide (Pulmicort 0.5 Mg/2ml) 0.5 mg BIDRESP IH 02/06/25 18:00 03/08/25 17:59 02/07/25 07:24 0.5 MG Dopamine HCl/ Dextrose 250 ml @ 0 mls/hr PROTOCOL PRN IV HR < 60 and hypotension 02/06/25 10:00 03/08/25 09:59 Famotidine (Pepcid 20mg Vial) 20 mg DAILY IV 02/07/25 09:00 03/09/25 08:59 Fluticasone/ Vilanterol (BrEO ELLiptA 200-25 MCG INH) 1 PUFF DAILY IH 02/07/25 09:00 6/9/25 08:59 Lactulose (Constulose 20gm/ 30ml Udcup) 10 gm BID PRN PO CONSTIPATION 02/06/25 17:00 03/08/25 16:59 Metoprolol Succinate (TopROL XL) 12.5 mg DAILY PO 02/07/25 09:00 03/09/25 08:59 Montelukast Sodium (SinguLAIR) 10 mg DAILY PO 02/07/25 09:00 03/09/25 08:59 Ondansetron HCl (zoFRAN 4MG INJ) 4 mg Q6H PRN IVP NAUSEA/VOMITING 02/06/25 09:30 03/08/25 09:29 DIAGNOSTICS / RADIOLOGY: [ ] ASSESSMENT: acute resp failure with hypoxia requiring oxygen supplemental: POA symptomatic Complete Heart Block POA Near syncope episodes POA acute on 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 BreoEllip: Inhaler scheduled daily Singulair aspiration precaution: HOB elevated at 45 degree at all time. Labs cbc, cmp, mag+ in am Replace electrolytes as needed as per protocol to keep potassium above 4.0 magnesium 2.0. Home medications pending to be reviewed by RN nurse. Fall precaution PRN: MEDICATIONS Tylenol 650 mg po every 4 hrs for fever zofran 4 mg IV every 6 hrs for n/vfamo bowel regiment: lactulose 20 gm PO BID PRN constipation Pain management: Supportive measures: DVT ppx, GI ppx PT eval and treat: PT/OT all questions answered Supervising MD: Dr. Horvath c/d This document was generated in part using voice recognition software, occasional wrong word or sound alike substitutions may have occurred due to the inherent limitations of voice recognition software. Read the chart carefully and recognize using context, where the substitutions have occurred. Although every effort was made to edit the content, licensed occupational therapist and typing errors may occur ATTESTATION BY PHYSICIAN I have seen and examined the patient. I reviewed the documentation, medical decision making, and treatment plan as noted by the mid-level provider above. I agree with the findings and plan of care. BELLA HORVATH MD, ELIZABETH NP February 07, 2025 08:54 BELLA HORVATH MD February 07, 2025 12:05
[2025-02-07] MEDS: fluTICasone/viLANTerol 1 EACH BLST.W.DEV IH SCH (09:00)
[2025-02-07 09:11] LABS: B-TYPE NATRIURETIC PEPTIDE 126 pg/mL (0-100)
[2025-02-07] MEDS: FAMOTIDINE 20MG VIAL IV SCH (09:23)
[2025-02-07] MEDS: ASPIRIN 81MG CHEW TAB PO SCH (09:23)
[2025-02-07] MEDS: atorVAStatin 40 MG TABLET PO SCH (09:23)
[2025-02-07] MEDS: monteLUKAST sodIUM 10 MG TAB PO SCH (09:23)
[2025-02-07] MEDS: metOPROLol sucCINATE 25 MG TAB.SR.24H PO SCH (09:23)
--- NOTE | 2025-02-07 10:01 | HMCIMG ---
Exam Type: CHEST 1VW Clinical Information: s/p pacemaker Comparison: None Findings: The lungs are clear of infiltrates. The heart is enlarged in size. The bony and soft tissue structures of the chest are unremarkable. Left cardiac pacemaker is noted with leads in place. Impression: Clear lungs.
--- NOTE | 2025-02-07 14:15 | NUR ---
MELECIO PLAN 02 EVAL PATIENT DID QUALIFY. JELLY SPOKE TO PATIENT JOSI SIGNED FOR ANY IN NETWORK. PATIENT NOT HAPPY ABOUT . SAID HAS NOT NEEDED IN THE PAST. FEELS PRIMARY DOCTORS AT HOME WILL SAY SHE DOES NOT NEED IT. EXPLAINED THAT AT THIS TIME SHE DID QUALIFY AND IF LATER ON SHE NO LONGER NEEDS IT THEN MD CAN DISCONTINUE. AT THIS TIME PATIENT CHANGED MIND SAID WANTS TO GO HOME AND NOT GET O2. JELLY EXPLAINED THAT WAS PATIENT CHOICE WOULD HAVE TO LEAVE AMA. JELLY LET NURSE KNOW. NURSE CALLED JELLY SAID PATIENT CHANGED MIND AGAIN NOW WANTS . JELLY GOT FORMS SIGNED BY DEANA BOUCHER. EMAILED TO [facility] WITH JEMIMA. Addendum: 02/07/25 at 1422 by HARJIT RIZO RN CM Amended: Links added.
--- NOTE | 2025-02-07 14:35 | PN ---
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 She presented with abdominal discomfort and near-syncope and in the emergency room was found to be in complete heart block with a ventricular escape rhythm in the 40s. A 2D echocardiogram 02/06/2025 demonstrated an LVEF of 50-55% and stage I diastolic dysfunction. She underwent permanent pacemaker insertion by Dr. Hay Sal 02/06/2025 with a [employer] S DR OLY Barlow dual-chamber device without complication. This morning telemetry demonstrates normal pacemaker function. Device interrogation demonstrates normal parameters and normal function and her chest x-ray demonstrates no pneumothorax and normal lead positioning. Physical Examination: GENERAL: No acute distress. HEAD: Normal with no signs of head trauma. EYES: PERRLA, EOMI, conjunctiva and sclera normal. NECK: Supple without JVD. There is no tenderness, lymphadenopathy, or masses. No thyromegaly. Normal carotid upstrokes without bruits. LUNGS: Pacemaker in left subclavian region dressing is dry and intact. Clear breath sounds bilaterally. No wheezes, or rhonchi. HEART: Normal rate and rhythm. Normal S1 and S2 without murmurs, gallop or rub. VASC: Peripheral pulses +2 bilaterally. EXT: No clubbing, cyanosis or edema. NEURO: Awake, alert, and oriented x3. No focal neurological deficits noted. Laboratory: Hematology Labs: Test 02/07/25 08:30 Range/Units White Blood Count 7.9 4.8-10.8 K/uL Red Blood Count 4.82 4.00-5.50 MIL/uL Hemoglobin 14.6 12.0-16.0 g/dL Hematocrit 43.6 36-48 % Mean Corpuscular Volume 90.5 79-99 fL Mean Corpuscular Hemoglobin 30.3 27.0-33.0 pg Mean Corpuscular Hemoglobin Concent 33.5 32.0-36.0 g/dL Red Cell Distribution Width 13.2 11.0-15.5 % Platelet Count 203 # 130-400 K/uL Mean Platelet Volume 9.7 7.5-10.5 fL Immature Granulocyte % (Auto) 0.3 0-1 % Neutrophils (%) (Auto) 62.0 40.0-77.0 % Lymphocytes (%) (Auto) 24.5 21.0-51.0 % Monocytes (%) (Auto) 11.2 3.0-13.0 % Eosinophils (%) (Auto) 1.0 0.0-8.0 % Basophils (%) (Auto) 1.0 0.0-5.0 % Neutrophils # (Auto) 4.9 1.8-7.7 K/uL Lymphocytes # (Auto) 1.9 1.0-4.8 K/uL Monocytes # (Auto) 0.9 0.1-1.0 K/uL Eosinophils # (Auto) 0.08 0.00-0.70 K/uL Basophils # (Auto) 0.08 0.00-0.20 K/uL Absolute Immature Granulocyte (auto 0.02 0-1 K/uL Nucleated Red Blood Cells 0.0 0.0-0.19 % Chemistry Labs: Test 02/07/25 08:30 02/06/25 10:23 02/06/25 07:49 Range/Units Sodium Level 143 136-145 mmol/L Potassium Level 4.0 3.5-5.1 mmol/L Chloride Level 108 101-111 mmol/L Carbon Dioxide Level 25 21-32 mmol/L Blood Urea Nitrogen 27 H 7-18 mg/dL Creatinine 1.1 H 0.5-1.0 mg/dL Glomerular Filtration Rate Calc 50 >90 mL/min Random Glucose 113 H 70-105 mg/dL Total Calcium 8.6 8.5-10.1 mg/dL Total Bilirubin 0.5 0.2-1.0 mg/dL Aspartate Amino Transf (AST/SGOT) 15 10-37 U/L Alanine Aminotransferase (ALT/SGPT) 12 12-78 U/L Alkaline Phosphatase 65 50-136 U/L B-Type Natriuretic Peptide 126 H 0-100 pg/mL Total Protein 6.8 6.0-8.3 g/dL Albumin 3.6 3.5-5.0 g/dL Troponin I High Sensitivity 8 4-50 ng/L Magnesium Level 2.10 1.80-2.40 mg/dL Total Creatine Kinase 94 21-232 U/L Thyroid Stimulating Hormone (TSH) 1.06 # 0.36-3.74 uIU/mL Coagulation Labs: Test 02/06/25 07:49 Range/Units Prothrombin Time 11.2 9.6-11.6 SEC Prothromb Time International Ratio 1.06 0.85-1.15 Activated Partial Thromboplast Time 24.3 L 26.3-35.5 SEC Diagnostics / Radiology: 2D echocardiogram 02/06/2025: Conclusion LVEF 50-55% with stage I diastolic dysfunction. Normal RV size and function. The mitral valve is mildly thickened. Mitral valve leaflets open well. There is mild mitral annular calcification. There is no pericardial effusion. Prominent anterior epicardial fat pad is present. DICTATED BY: DEJUAN BUNCH MD DATE: 02/06/25831 Impression and Plan: Complete heart block with symptomatic bradycardia status post dual-chamber permanent pacemaker insertion 02/06/2025 with a [employer] Aye S DR MRI SureScan dual-chamber device by Dr. Hay Sal: -wound care instructions given to patient as well as general instructions regarding pacemaker care -chest x-ray demonstrates no pneumothorax and leads to be in good position -interrogation of her pacemaker device this morning by the [employer] vaccine customer representative demonstrated normal parameters and function -call [facility] to schedule appointment with Dr. 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
--- NOTE | 2025-02-07 14:47 | HMCIMG ---
INDICATION: S/P PACEMAKER TECHNIQUE: CHEST 1VW COMPARISON: 02/07/2025 FINDINGS AND IMPRESSION: Prominent bilateral interstitial markings which may represent bronchitis or vascular congestion in the proper clinical setting. Left-sided pacemaker is again noted. Cardiac silhouette is within normal limits. Mild degenerative changes of the spine. The visualized upper abdomen appears unremarkable.
--- NOTE | 2025-02-07 19:45 | PN ---
[facility] PROGRESS NOTE Date Patient Seen: February 07, 2025 Time of Visit: 11:00 Supervising Physician: Vu Valera MD Primary Care Physician: Jerald Garrett MD Outpatient Specialists: DR Du Inpatient Consults: LUIZA Clifton PROBLEM LIST: Symptomatic complete heart block status post dual-chamber Medtr[employer] PPM place ment on 02/06/25 Acute resp failure with hypoxia requiring oxygen supplemental: POA Near syncope episodes POA acute on Chronic combined with EF 45/50% with exacerbation POA Leukocytosis POA Essential HTN: uncontrolled COPD exacerbation non tolerant of systemic steroids Carotid artery disease s/p Left carotid endarterectomy 2010 INTERVAL HISTORY: Pt awake alert and oriented x3. She reports early this morning she reported the tuna consistency onher sandwich got stuck on her esophagus on the way down and scare hr a bit she drank some warm coffee and it help pass the food. She denies any trouble eating. She believed its from the consistency with the dry bread that caused it to get stuck as per pt. She denies a cough and i observed her drink some water without any s/s of aspiration. She went walking today with PT and was able to ambulate 50 feet with insignificant discomfort. Pt failed 6 min walk with RT she will require home o2 prior to DC. She was notified and verbalized understanding and in agreement. Chest XR reviewed this morning. There is no pneumothorax. PPM in place. MIld Bilateral pulmonary vascular congestion. REVIEW OF SYSTEMS: Const: [no fever, fatigue, or weight changes] Eyes:[ no recent vision problems] ENT: [No congestion, ear pain, or sore throat] C/V: [no chest pain, palpitations or edema] Resp: [No cough, congestion, wheezing , mild dyspnea on exertion. GI: [No abdominal pain, nausea, vomiting, constipation, or diarrhea] : [No incontinence of or dyuria] M/S: [No joint or pain swelling] Skin: [No rash] Neuro: [no headache, focal numbness, or weakness, dizziness or seizures] Psych: [no depression or anxiety] Heme: [no abnormal bruising or bleeding] Lymph: [no swollen glands] PHYSICAL EXAM: GENERAL: alert, weak, awake oriented x 3 HEENT: EOMI, Sclera non icteric, moist mucosa NECK: Supple, no JVD, trachea midline , left arm swing , dressing to left chest wall clean dry and intact, LUNGS: Clear breath sounds bilaterally. No wheezes HEART: Regular rate and rhythm. Normal S1 and S2, without murmurs ABD: Abdomen soft, nontender. Bowel sounds present EXT: No clubbing cyanosis or edema NEURO: Alert and oriented to person, follows commands Vital Signs (last 8hr) Date Time Temp Pulse Resp B/P (MAP) Pulse Ox O2 Delivery O2 Flow Rate FiO2 02/07/25 18:42 69 18 02/07/25 18:42 69 18 N/Cannula Low lpm 2.0 28 02/07/25 16:00 98.1 64 17 117/54 96 Nasal Cannula 3.0 LABS: Hematology Labs: Test 02/07/25 08:30 Range/Units White Blood Count 7.9 4.8-10.8 K/uL Red Blood Count 4.82 4.00-5.50 MIL/uL Hemoglobin 14.6 12.0-16.0 g/dL Hematocrit 43.6 36-48 % Mean Corpuscular Volume 90.5 79-99 fL Mean Corpuscular Hemoglobin 30.3 27.0-33.0 pg Mean Corpuscular Hemoglobin Concent 33.5 32.0-36.0 g/dL Red Cell Distribution Width 13.2 11.0-15.5 % Platelet Count 203 # 130-400 K/uL Mean Platelet Volume 9.7 7.5-10.5 fL Immature Granulocyte % (Auto) 0.3 0-1 % Neutrophils (%) (Auto) 62.0 40.0-77.0 % Lymphocytes (%) (Auto) 24.5 21.0-51.0 % Monocytes (%) (Auto) 11.2 3.0-13.0 % Eosinophils (%) (Auto) 1.0 0.0-8.0 % Basophils (%) (Auto) 1.0 0.0-5.0 % Neutrophils # (Auto) 4.9 1.8-7.7 K/uL Lymphocytes # (Auto) 1.9 1.0-4.8 K/uL Monocytes # (Auto) 0.9 0.1-1.0 K/uL Eosinophils # (Auto) 0.08 0.00-0.70 K/uL Basophils # (Auto) 0.08 0.00-0.20 K/uL Absolute Immature Granulocyte (auto 0.02 0-1 K/uL Nucleated Red Blood Cells 0.0 0.0-0.19 % Chemistry Labs: Test 02/07/25 08:30 02/06/25 10:23 02/06/25 07:49 Range/Units Sodium Level 143 136-145 mmol/L Potassium Level 4.0 3.5-5.1 mmol/L Chloride Level 108 101-111 mmol/L Carbon Dioxide Level 25 21-32 mmol/L Blood Urea Nitrogen 27 H 7-18 mg/dL Creatinine 1.1 H 0.5-1.0 mg/dL Glomerular Filtration Rate Calc 50 >90 mL/min Random Glucose 113 H 70-105 mg/dL Total Calcium 8.6 8.5-10.1 mg/dL Total Bilirubin 0.5 0.2-1.0 mg/dL Aspartate Amino Transf (AST/SGOT) 15 10-37 U/L Alanine Aminotransferase (ALT/SGPT) 12 12-78 U/L Alkaline Phosphatase 65 50-136 U/L B-Type Natriuretic Peptide 126 H 0-100 pg/mL Total Protein 6.8 6.0-8.3 g/dL Albumin 3.6 3.5-5.0 g/dL Troponin I High Sensitivity 8 4-50 ng/L Magnesium Level 2.10 1.80-2.40 mg/dL Total Creatine Kinase 94 21-232 U/L Thyroid Stimulating Hormone (TSH) 1.06 # 0.36-3.74 uIU/mL Coagulation Labs: Test 02/06/25 07:49 Range/Units Prothrombin Time 11.2 9.6-11.6 SEC Prothromb Time International Ratio 1.06 0.85-1.15 Activated Partial Thromboplast Time 24.3 L 26.3-35.5 SEC DIAGNOSTICS / RADIOLOGY RESULTS: [ ] Signed PATIENT: JENN MURRAY MR#: [id number] : 1940 SEX: F AGE: 84 LOCATION: 2DH ORDER 56 STATUS: ADM IN REPORT#: [id number] SERVICE [id number] REASON: S/P PACEMAKER ORDERING PHYSICIAN: NEAL SCOTT MD PROCEDURE: CXR1VW - CHEST 1VW INDICATION: S/P PACEMAKER TECHNIQUE: CHEST 1VW COMPARISON: 02/07/2025 FINDINGS AND IMPRESSION: Prominent bilateral interstitial markings which may represent bronchitis or vascular congestion in the proper clinical setting. Left-sided pacemaker is again noted. Cardiac silhouette is within normal limits. Mild degenerative changes of the spine. The visualized upper abdomen appears unremarkable. DICTATED BY: ZEENAT BRITTON MD DATE: 02/07/251442 ELECTRONICALLY SIGNED BY: ZEENAT BRITTON MD DATE: 02/07/251446 PLAN pt reporst just complete medrol pack and refusing steroids due to irritability and intolerance. Given exposure of smoking for many years, patient has a developed COPD with exacerbation. Patient to follow up as outpatient at pulmonary clinic in two we eks for PFTs, we will continue with nebulizer treatments with atrovent, Pulmicort, steroids. Singulair 10 mg daily Maintain O2 sats above 88% smoking cessation 6 min walk- failed CM to arrange for home o2. Influenza a and B negative, COVID-19 negative, Chest XR post PPM w/ no pneumothorax -Arrange outpatient pulmonology referral for sleep study, PFT and follow-up management upon discharge NEURO: Minimize central acting medications as possible. Maintain fall precautions, adequate lighting during the day PULMONARY: Supplemental 02 as needed. Maintain aspiration precautions at all times CARDIOVASCULAR: Follow hemodynamics. Vital signs per facility protocol GI & NUTRITION: Continue with nutritional support. Continue stool softeners and laxatives as needed. KIDNEYS & ELECTROLYTES: Strict monitoring of intake, output and overall fluid balance. Avoid nephrotoxic medications to the extent possible. Medications to be dosed according to renal function. Monitor electrolytes and replace as needed ENDOCRINE: Maintain blood glucose between 100-180 at all times. Hypoglycemia protocol in place INFECTIOUS DISEASE: Trend temperature, WBC and procalcitonin level Follow cultures, deescalate antibiotics as soon as possible. Panculture if new onset fever ONCOLOGY/HEMATOLOGY/COAGULATION: Monitor for s/s of bleeding Monitor hemoglobin, coagulation studies as needed SKIN: Pressure ulcer prevention per facility protocol Specialty mattress ORTHO/REHAB: Continue PT/OT Prophylaxis: Continue GI and DVT prophylaxis Code Status: Full Resuscitation Disposition: TBD Other: Total patient care time exceeds 35 minutes excluding all procedures. ATTESTATION BY PHYSICIAN I reviewed the documentation, medical decision making, and treatment plan as noted by the mid-level provider above. I agree with the findings and plan of care. Vu Valera MD, NELLY J [facility] February 07, 2025 19:45
--- NOTE | 2025-02-08 02:40 | NUR ---
nurse note patient alert and oriented times 3. plan of care discussed with her and she verbalized understanding. patient has a positive attitude at 19:00 when I placed a 20 gauge Iv catheter in her right forearm. At around 21:00, she started saying that she does not need oxygen, that her television doesn't work, and that her room was "very hot in the 80's degrees." She says she wishes she was in [place] and not here. She says her television only has 3 channels and they are in congolese only. She says she does not need oxygen and that she has primary doctors that can "deal with me." She took off her nasal cannula. I reminded her the importance of wearing it due to her oxygenation and she replied by, "I will prove to you that I do not need it." She refused for me to assess her oxygenation on her fingers. She called her family member to complain about this hospital. After the phone call with her family member, she started laughing and her mood changed with the nursing staff. She said she understands that she needs oxygen and will place it back on. She does refuse the bed alarm and has signed the refusal for it. She smiled and says she is "not a prisoner." She has slept about 5 hours tonight. She has no pain on her left shoulder. She has her sling on at all times. Door slightly open, bed alarm on, 2 side rails up. will continue to monitor patient.
[2025-02-08 04:20] VITALS: BP 138/72; PULSE 73; RESP 18; TEMP 98.2
[2025-02-08 04:26] LABS: BASOPHILS # (AUTO) 0.06 K/uL (0.00-0.20); BASOPHILS % (AUTO) 0.7 % (0.0-5.0); EOSINOPHILS # (AUTO) 0.18 K/uL (0.00-0.70); EOSINOPHILS % (AUTO) 2.2 % (0.0-8.0); IMMATURE GRANULOCYTE ABSOLUTE 0.02 K/uL (0-1); LYMPHOCYTES # (AUTO) 1.7 K/uL (1.0-4.8); LYMPHOCYTES % (AUTO) 20.4 % (21.0-51.0); MEAN CORPUSCULAR HEMOGLOBIN 30.1 pg (27.0-33.0); MEAN CORPUSCULAR HGB CONC 33.5 g/dL (32.0-36.0); MEAN CORPUSCULAR VOLUME 89.8 fL (79-99); MONOCYTES % (AUTO) 11.6 % (3.0-13.0); NEUTROPHILS # (AUTO) 5.4 K/uL (1.8-7.7); NEUTROPHILS % (AUTO) 64.9 % (40.0-77.0); PLATELET COUNT (AUTO) 196 K/uL (130-400); RED BLOOD CELL COUNT(AUTO) 4.79 MIL/uL (4.00-5.50); RED CELL DISTRIBUTION WIDTH 12.9 % (11.0-15.5); WHITE BLOOD COUNT (AUTO) 8.3 K/uL (4.8-10.8)
[2025-02-08 04:46] LABS: ALBUMIN 3.4 g/dL (3.5-5.0); BILIRUBIN,TOTAL 0.6 mg/dL (0.2-1.0); MAGNESIUM 1.9 mg/dL (1.80-2.40); POTASSIUM 3.7 mmol/L (3.5-5.1); TOTAL PROTEIN, SERUM 6.4 g/dL (6.0-8.3)
--- NOTE | 2025-02-08 05:00 | NUR ---
note patient taking off her nasal cannula and I explained to her the importance of wearing her oxygen. she verbalized that her nose is bloody and dry. I cleaned her nose with normal saline and added a sterile water to the nasal cannula to humidify it. patient also complained about her right arm hurting after the lab draw. her left arm was also hurting. she wanted tylenol with codeine for severe pain and I applied heating pads to her right arm. she says she feels much better. she will shower later on today.
[2025-02-08] MEDS: PoTASSium chloRIDE 20MEQ ER 20 MEQ ERTAB PO PRN (05:13)
[2025-02-08] MEDS: MAGNESIUM 2GM PREMIX 50ML 50 ML IV PRN (05:14)
[2025-02-08] MEDS ORDERED: PoTASSium chl 10% ELIXIR 20MEQ 20 MEQ/15 ML UDCUP PO PRN (05:30)
[2025-02-08] MEDS ORDERED: PoTASSium chloRIDE 20MEQ/100ML 100 ML IV PRN (05:30)
[2025-02-08 06:43] VITALS: PULSE 69; RESP 18
[2025-02-08 06:46] VITALS: PULSE 69; RESP 18; O2SAT 95
[2025-02-08 08:00] VITALS: BP 111/63; PULSE 75; RESP 19; TEMP 98.2
--- NOTE | 2025-02-08 09:41 | PN ---
[facility] PROGRESS NOTE Date Patient Seen: February 08, 2025 Time of Visit: 09:41 Supervising Physician: [ ] Primary Care Physician: Jerald Garrett MD Outpatient Specialists: DR Du Inpatient Consults: LUIZA Clifton PROBLEM LIST: Symptomatic complete heart block status post dual-chamber [employer] PPM placement on 02/06/25 Acute resp failure with hypoxia requiring oxygen supplemental: POA Near syncope episodes POA acute on Chronic combined with EF 45/50% with exacerbation POA Leukocytosis POA Essential HTN: uncontrolled COPD exacerbation non tolerant of systemic steroids Carotid artery disease s/p Left carotid endarterectomy 2010 INTERVAL HISTORY: Pt awake alert and oriented x3. She reports early this morning she reported the tuna consistency onher sandwich got stuck on her esophagus on the way down and scare hr a bit she drank some warm coffee and it help pass the food. She denies any trouble eating. She believed its from the consistency with the dry bread that caused it to get stuck as per pt. She denies a cough and i observed her drink some water without any s/s of aspiration. She went walking today with PT and was able to ambulate 50 feet with insignificant discomfort. Pt failed 6 min walk with RT she will require home o2 prior to DC. She was notified and verbalized understanding and in agreement. Chest XR reviewed this morning. There is no pneumothorax. PPM in place. MIld Bilateral pulmonary vascular congestion. REVIEW OF SYSTEMS: Const: [no fever, fatigue, or weight changes] Eyes:[ no recent vision problems] ENT: [No congestion, ear pain, or sore throat] C/V: [no chest pain, palpitations or edema] Resp: [No cough, congestion, wheezing , mild dyspnea on exertion. GI: [No abdominal pain, nausea, vomiting, constipation, or diarrhea] : [No incontinence of or dyuria] M/S: [No joint or pain swelling] Skin: [No rash] Neuro: [no headache, focal numbness, or weakness, dizziness or seizures] Psych: [no depression or anxiety] Heme: [no abnormal bruising or bleeding] Lymph: [no swollen glands] PHYSICAL EXAM: GENERAL: alert, weak, awake oriented x 3 HEENT: EOMI, Sclera non icteric, moist mucosa NECK: Supple, no JVD, trachea midline , left arm swing , dressing to left chest wall clean dry and intact, LUNGS: Clear breath sounds bilaterally. No wheezes HEART: Regular rate and rhythm. Normal S1 and S2, without murmurs ABD: Abdomen soft, nontender. Bowel sounds present EXT: No clubbing cyanosis or edema NEURO: Alert and oriented to person, follows commands Vital Signs (last 8hr) Date Time Temp Pulse Resp B/P (MAP) Pulse Ox O2 Delivery O2 Flow Rate FiO2 02/08/25 08:00 98.2 75 19 111/63 94 Nasal Cannula 3.0 02/08/25 06:46 69 18 N/Cannula Low lpm 3.0 02/08/25 06:43 69 18 02/08/25 04:20 98.2 73 18 138/72 95 Nasal Cannula 3.0 LABS: Hematology Labs: Test 02/08/25 03:42 Range/Units White Blood Count 8.3 4.8-10.8 K/uL Red Blood Count 4.79 4.00-5.50 MIL/uL Hemoglobin 14.4 12.0-16.0 g/dL Hematocrit 43.0 36-48 % Mean Corpuscular Volume 89.8 79-99 fL Mean Corpuscular Hemoglobin 30.1 27.0-33.0 pg Mean Corpuscular Hemoglobin Concent 33.5 32.0-36.0 g/dL Red Cell Distribution Width 12.9 11.0-15.5 % Platelet Count 196 130-400 K/uL Mean Platelet Volume 9.8 7.5-10.5 fL Immature Granulocyte % (Auto) 0.2 0-1 % Neutrophils (%) (Auto) 64.9 40.0-77.0 % Lymphocytes (%) (Auto) 20.4 L 21.0-51.0 % Monocytes (%) (Auto) 11.6 3.0-13.0 % Eosinophils (%) (Auto) 2.2 0.0-8.0 % Basophils (%) (Auto) 0.7 0.0-5.0 % Neutrophils # (Auto) 5.4 1.8-7.7 K/uL Lymphocytes # (Auto) 1.7 1.0-4.8 K/uL Monocytes # (Auto) 1.0 0.1-1.0 K/uL Eosinophils # (Auto) 0.18 0.00-0.70 K/uL Basophils # (Auto) 0.06 0.00-0.20 K/uL Absolute Immature Granulocyte (auto 0.02 0-1 K/uL Nucleated Red Blood Cells 0.0 0.0-0.19 % Chemistry Labs: Test 02/08/25 03:42 02/07/25 08:30 02/06/25 10:23 Range/Units Sodium Level 141 136-145 mmol/L Potassium Level 3.7 3.5-5.1 mmol/L Chloride Level 108 101-111 mmol/L Carbon Dioxide Level 23 21-32 mmol/L Blood Urea Nitrogen 18 7-18 mg/dL Creatinine 1.0 0.5-1.0 mg/dL Glomerular Filtration Rate Calc 56 >90 mL/min Random Glucose 132 H 70-105 mg/dL Total Calcium 8.7 8.5-10.1 mg/dL Magnesium Level 1.90 1.80-2.40 mg/dL Total Bilirubin 0.6 0.2-1.0 mg/dL Aspartate Amino Transf (AST/SGOT) 16 10-37 U/L Alanine Aminotransferase (ALT/SGPT) 15 # 12-78 U/L Alkaline Phosphatase 62 50-136 U/L Total Protein 6.4 6.0-8.3 g/dL Albumin 3.4 L 3.5-5.0 g/dL B-Type Natriuretic Peptide 126 H 0-100 pg/mL Troponin I High Sensitivity 8 4-50 ng/L DIAGNOSTICS / RADIOLOGY RESULTS: [ ] PLAN pt reporst just complete medrol pack and refusing steroids due to irritability and intolerance. Given exposure of smoking for many years, patient has a developed COPD with exacerbation. Patient to follow up as outpatient at pulmonary clinic in two weeks for PFTs, we will continue with nebulizer treatments with atrovent, Pulmicort, steroids. Singulair 10 mg daily Maintain O2 sats above 88% smoking cessation 6 min walk- failed CM to arrange for home o2. Influenza a and B negative, COVID-19 negative, Chest XR post PPM w/ no pneumothorax -Arrange outpatient pulmonology referral for sleep study, PFT and follow-up management upon discharge NEURO: Minimize central acting medications as possible. Maintain fall precautions, adequate lighting during the day PULMONARY: Supplemental 02 as needed. Maintain aspiration precautions at all times CARDIOVASCULAR: Follow hemodynamics. Vital signs per facility protocol GI & NUTRITION: Continue with nutritional support. Continue stool softeners and laxatives as needed. KIDNEYS & ELECTROLYTES: Strict monitoring of intake, output and overall fluid balance. Avoid nephrotoxic medications to the extent possible. Medications to be dosed according to renal function. Monitor electrolytes and replace as needed ENDOCRINE: Maintain blood glucose between 100-180 at all times. Hypoglycemia protocol in place INFECTIOUS DISEASE: Trend temperature, WBC and procalcitonin level Follow cultures, deescalate antibiotics as soon as possible. Panculture if new onset fever ONCOLOGY/HEMATOLOGY/COAGULATION: Monitor for s/s of bleeding Monitor hemoglobin, coagulation studies as needed SKIN: Pressure ulcer prevention per facility protocol Specialty mattress ORTHO/REHAB: Continue PT/OT Prophylaxis: Continue GI and DVT prophylaxis Code Status: Full Resuscitation Disposition: TBD Other: Total patient care time exceeds 35 minutes excluding all procedures. DEANA RESTREPO [facility] February 08, 2025 09:41
[2025-02-08 09:45] VITALS: O2SAT 95
[2025-02-08] MEDS: FAMOTIDINE 20MG TAB PO SCH (10:42)
[2025-02-08 12:00] VITALS: BP 111/55; PULSE 70; RESP 19; TEMP 97.6
--- NOTE | 2025-02-08 12:09 | DS ---
Discharge Summary Hospital Course Summary: This is 84-year-old female presents with generalized weakness, dyspnea with Minimal exertion. Onset 2 days. severity: severe fatigue, aggravating factors: activity, alleviating factors none: Reports having of episodes of near fainting. Assoicated factors: GI symptoms, Denies Chest pain or palpation, no sw elling to lower ext. In ED workup was found to be in Complete heart block Imaging:chest xray Pulmonary vascular pattern appears normal there were no effusions or infiltrates. Home Medications: Breo Ellipta inhaler once a day aspirin 81 mg daily pro air i nhaler every 4 hours p.r.n. resume rosuvastatin 10 mg daily metoprolol succinate 25 mg 1/2 tablet b.i.d. The patient seen in Ed 10 she fully awake and oriented x3, she become dyspneic during my visit she currently on nasal cannula 2 liters: Dr Boykin evaluated patient possible permanent pace maker. Patient taken to labor relations officer 02/06/2025, underwent successful pacemaker implantation without complication. Today the patient is alert oriented x3, she would like to be discharged home, she is comfortably in bed, saturating normal on room air, she denies dizziness, no headache, no blurry vision, no chest pain, no shortness a breath, no cough, no nausea, no vomiting, no abdominal pain, no diarrhea, no constipation, no melena, no hematochezia, no hematemesis, no hematuria, no dysuria. 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 Taye Du as an outpatient in one week. Home Medications: Reported Medications Lactulose (Lactulose) 10 Gram/15 Ml Solution, 10 ML PO BID PRN for CONSTIPATION, #500 ML 0 Refills 02/06/25 Prednisone (Prednisone) 20 Mg Tablet, 1 TAB PO DAILY for 5 Days, #10 TAB 0 Refills 02/06/25 Metoprolol Succinate (Metoprolol Succinate) 25 Mg Tab.er.24h, 12.5 MG PO DAILY, TAB 02/06/25 Albuterol Sulfate (Ventolin Hfa) 90 Mcg Hfa.aer.ad, 1 PUFF IH QID PRN for wheezing for 30 Days, #18 GM 0 Refills 08/30/24 Rosuvastatin Calcium (Rosuvastatin Calcium) 10 Mg Tablet, 10 MG PO DAILY, TAB 08/30/24 Aspirin (Aspirin) 81 Mg Tab.chew, 81 MG PO DAILY, TAB.CHEW 12/27/19 Discontinued Reported Medications Lactulose (Lactulose) 10 Gram/15 Ml Solution, 10 ML PO DAILY for constipation, #500 ML 0 Refills 02/06/25 Fluticasone Propionate (Fluticasone Propionate) 50 Mcg/Actuation [place].susp, 2 SPRAY NS DAILY, #16 GM 0 Refills 08/30/24 Fluticasone/Vilanterol (Breo Ellipta 100-25 Mcg INH) 100 Mcg-25 Mcg/Dose Aer.pow.ba, 1 PUFF IH DAILY for 30 Days, #1 EACH 0 Refills 08/30/24 Prednisone (Prednisone) 20 Mg Tablet, 20 MG PO AD, TAB 08/30/24 Albuterol Sulfate (Proair Hfa) 8.5 Gm Hfa.aer.ad, 8.5 GM IH DAILY 12/27/19 Montelukast Sodium (Singulair 10Mg) 10 Mg Tab, 10 MG PO DAILY, TAB 12/27/19 Clopidogrel Bisulfate (Clopidogrel) 75 Mg Tablet, 75 MG PO DAILY, TAB 12/27/19 Discontinued Scripts Metoprolol Succinate (Toprol Xl) 25 Mg Tab.er.24h, 25 MG PO DAILY, #30 TAB Prov:JUANA DOUGLAS MD 09/02/24 Fluconazole (Fluconazole) 100 Mg Tablet, 100 MG PO DAILY, #7 TAB Prov:JUANA DOUGLAS MD 09/02/24 Spironolactone (Spironolactone) 25 Mg Tablet, 25 MG PO DAILY, #30 TAB Prov:JUANA DOUGLAS MD 09/02/24 Lisinopril (Lisinopril) 2.5 Mg Tablet, 2.5 MG PO DAILY, #30 TAB Prov:JUANA DOUGLAS MD 09/02/24 Empagliflozin (Jardiance) 10 Mg Tablet, 10 MG PO DAILY, #30 TAB Prov:JUANA DOUGLAS MD 09/02/24 Time spent arranging discharge: 31-60 minutes BELLA PAYAN MD February 08, 2025 12:09
[2025-02-08] MEDS ORDERED: ATOR40TA69 PO (12:21)
[2025-02-08] MEDS ORDERED: AZIT250T9 PO (12:21)
[2025-02-08] MEDS ORDERED: FLUT1BLS IH (12:21)
[2025-02-08] MEDS ORDERED: MONT-46 PO (12:21)
== END 2025-02-08 14:41 | disposition home or self-care (01) | DRG 242 ==
LOC: EDH 07:25 → EDHIP 08:57 → 2DH 14:41
PROVIDERS: ADMIT Internal Medicine; ATTEND Internal Medicine
PROC: 0JH606Z Insertion of Pacemaker, Dual Chamber into Chest Subcutaneous Tissue and Fascia, Open Approach (ICD-10-PCS; principal; 2025-02-06)
PROC: 02H63JZ Insertion of Pacemaker Lead into Right Atrium, Percutaneous Approach (ICD-10-PCS; 2025-02-06)
PROC: 02HL3JZ Insertion of Pacemaker Lead into Left Ventricle, Percutaneous Approach (ICD-10-PCS; 2025-02-06)
DX: I44.2 Atrioventricular block, complete (principal); I50.43 Acute on chronic combined systolic (congestive) and diastolic (congestive) heart failure; J96.01 Acute respiratory failure with hypoxia; J44.1 Chronic obstructive pulmonary disease with (acute) exacerbation; D72.829 Elevated white blood cell count, unspecified; I44.7 Left bundle-branch block, unspecified; E78.5 Hyperlipidemia, unspecified; Z20.822 Contact with and (suspected) exposure to COVID-19; I11.0 Hypertensive heart disease with heart failure; Z95.0 Presence of cardiac pacemaker; Z88.2 Allergy status to sulfonamides; Z87.891 Personal history of nicotine dependence; Z99.81 Dependence on supplemental oxygen; Z79.899 Other long term (current) drug therapy; Z79.51 Long term (current) use of inhaled steroids; Z79.52 Long term (current) use of systemic steroids; Z79.01 Long term (current) use of anticoagulants; Z79.84 Long term (current) use of oral hypoglycemic drugs; Z79.82 Long term (current) use of aspirin; I25.2 Old myocardial infarction
CPT/HCPCS: 33208; 36415; 36600; 71045; 80048; 80053; 81001; 82435; 82550; 82803; 82947; 83605; 83735; 83880; 84132; 84295; 84443; 84484; 85018; 85025; 85610; 85730; 87426; 87804; 93005; 93306; 94640; 94664; 94760; 99156; 99157; 99291; C1785; G0378; J0690; J1644; J1940; J2250; J2470; J3010; J3475; J3490; J0665